=== PATIENT | female | born 1940 | race Caucasian/White ===

== ENCOUNTER 2018-02-18 03:24 | Emergency (ER) | payer MEDICARE, BC ==
--- NOTE | 2018-02-18 05:59 | ER Document Report ---
ED General - General Chief Complaint: Back Pain Stated Complaint: BACK PAIN Time Seen by Provider: 02/18/18 05:57 Mode of Arrival: Ambulatory Information source: Patient Notes: 78-year-old female patient who presents with left-sided back pain. Patient reports that the pain radiates from her midline to her left scapula. Patient reports that she had the same exact pain 2 years ago at which point she was diagnosed with either a musculoskeletal strain or an early shingles. Patient reports that she never developed shingles in that her musculoskeletal strain resolved within a few days. Patient denies any significant past medical history. On my examination patient is completely pain-free, patient has been waiting several hours and patient reports that she was able to do some stretches while waiting and that the pain is completely gone. Patient denies any other symptoms. TRAVEL OUTSIDE OF THE [place] IN LAST 30 DAYS: No - Related Data Allergies/Adverse Reactions: No Known Allergies Allergy (Verified 06/01/14 23:18) Past Medical History - General Information source: Patient - Social History Smoking Status: Never Smoker Chew tobacco use (# tins/day): No Frequency of alcohol use: None Drug Abuse: None Family History: Reviewed & Not Pertinent Patient has suicidal ideation: No Patient has homicidal ideation: No - Past Medical History Cardiac Medical History: Reports: Hx Atrial Fibrillation, Hx Hypercholesterolemia Renal/ Medical History: Denies: Hx Peritoneal Dialysis Past Surgical History: Reports: Hx Section, Hx Cholecystectomy, Hx Open Heart Surgery - Mitral valvuloplasty and (Porcine) Aortic valve replacement February 2014 - Immunizations Hx Diphtheria, Pertussis, Tetanus Vaccination: Yes Review of Systems - Review of Systems Constitutional: No symptoms reported EENT: No symptoms reported Cardiovascular: No symptoms reported Respiratory: No symptoms reported Gastrointestinal: No symptoms reported Genitourinary: No symptoms reported Female Genitourinary: No symptoms reported Musculoskeletal: See HPI Skin: No symptoms reported Hematologic/Lymphatic: No symptoms reported Neurological/Psychological: No symptoms reported Physical Exam - Vital signs Vitals: Temp Pulse Resp BP Pulse Ox 97.6 F 79 20 190/87 H 100 02/18/18 03:38 02/18/18 03:38 02/18/18 03:38 02/18/18 03:38 02/18/18 03:38 - Notes Notes: PHYSICAL EXAMINATION: GENERAL: Well-appearing, well-nourished and in no acute distress. HEAD: Atraumatic, normocephalic. EYES: Pupils equal round and reactive to light, extraocular movements intact, conjunctiva are normal. ENT: Nares patent, oropharynx clear without exudates. Moist mucous membranes. NECK: Normal range of motion, supple without lymphadenopathy LUNGS: Breath sounds clear to auscultation bilaterally and equal. No wheezes rales or rhonchi. HEART: Regular rate and rhythm without murmurs ABDOMEN: Soft, nontender, nondistended abdomen. No guarding, no rebound. No masses appreciated. Female : deferred Musculoskeletal: Normal range of motion, no pitting or edema. No cyanosis. NEUROLOGICAL: Cranial nerves grossly intact. Normal speech, normal gait. Normal sensory, motor exams PSYCH: Normal mood, normal affect. SKIN: Warm, Dry, normal turgor, no rashes or lesions noted. Course - Re-evaluation Re-evalutation: 78-year-old well appearing patient presents with complaint of back pain which has now resolved. Patient states that she had the exact same back pain 2 years ago at which point she was diagnosed with a musculoskeletal strain. Patient reports that she has been doing a lot of lifting and yard work lately. Patient' s physical exam is completely benign. Patient is requesting to leave without any workup. Patient reports that she already has an appointment scheduled with her provider for later today at [facility]. Patient declines the need for any medications to be administered in the emergency room. Patient will be discharged home with plans to follow-up with primary care later today if her pain returns. Patient specifically denies any chest pain, shortness of breath, nausea, vomiting or fever. Patient's vital signs were stable at time of arrival to emergency department. - Vital Signs Vital signs: Temp Pulse Resp BP Pulse Ox 97.6 F 79 20 190/87 H 100 02/18/18 03:38 02/18/18 03:38 02/18/18 03:38 02/18/18 03:38 02/18/18 03:38 Discharge - Discharge Clinical Impression: Musculoskeletal strain Back pain Qualifiers: Back pain location: thoracic back pain Chronicity: unspecified Back pain laterality: unspecified Qualified Code(s): M54.6 - Pain in thoracic spine Condition: Stable Disposition: HOME, SELF-CARE Additional Instructions: Muscle Strain You have strained a muscle -- torn the fibers within the muscle. This often occurs with strenuous exertion, or during an injury that suddenly stretches the muscle. The seriousness of a strain varies. Some strains heal within days, others cause problems for months. X-rays cannot show a muscle strain. X-rays are taken only if symptoms suggest that a fracture could be present. The usual treatment of a muscle strain is rest and ice packs. Sometimes, a sling, splint, or crutches may be necessary to rest the muscle. The muscle can be used again once pain subsides. Severe strains require a special exercise and stretching program to prevent permanent stiffness and disability. Your doctor will advise you if this will be necessary. Call the doctor immediately if pain or swelling becomes severe, or if numbness or discoloration develop. You came in today with a complaint of back pain. He stated to me that the back pain was resolved upon my assessment. This is likely caused by a musculoskeletal strain, the same thing you said you had 2 years ago as you said the pain was exactly the same as then. You have declined any need for prescriptions. Please follow-up with your primary care doctor in the next 3-5 days or return to the emergency department sooner if your pain worsens. Referrals: [facility] [Provider Group] - Follow up as needed
[2018-02-18 06:07] VITALS: BP 168/82
[2018-02-18 06:13] LABS: APPEARANCE,URINE CLEAR; BILIRUBIN,URINE NEGATIVE (NEGATIVE); COLOR,URINE STRAW; GLUCOSE, URINE NEGATIVE (NEGATIVE); KETONES,URINE NEGATIVE (NEGATIVE); LEUKOCYTE ESTERASE,URINE NEGATIVE (NEGATIVE); NITRITE,URINE NEGATIVE (NEGATIVE); PROTEIN,URINE NEGATIVE (NEGATIVE); URINE SPECIFIC GRAVITY 1.011; UROBILINOGEN,URINE NEGATIVE mg/dL (<2.0)
== END 2018-02-18 06:05 | disposition home or self-care (01) ==
LOC: ER 03:24
DX: T14.8XXA Other injury of unspecified body region, initial encounter (principal); X58.XXXA Exposure to other specified factors, initial encounter; M54.6 Pain in thoracic spine
CPT/HCPCS: 81001; 99283

== ENCOUNTER 2018-02-27 16:37 | Emergency (ER) | payer MEDICARE, BC ==
[2018-02-27] MEDS ORDERED: LIDOCAINE 5% (700 MG) TRANSDERMAL ADH..PATCH TP ONE (17:33)
[2018-02-27] MEDS ORDERED: DEXAMETHASONE SOD PHOS INJ 10 MG/1 ML VIAL IM ONE (17:33)
[2018-02-27] MEDS ORDERED: KETOROLAC TROMETHAMINE INJ/PF 30 MG/1 ML SDV IM ONE (17:33)
[2018-02-27] MEDS ORDERED: HYDROCODONE/ACETAMINOPHEN 5-325 MG (6 TAB/ER DISP) PO PRN (17:33)
--- NOTE | 2018-02-27 17:42 | ER Document Report ---
ED Neck/Back Problem - General Chief Complaint: Back Pain Stated Complaint: BACK PAIN Time Seen by Provider: 02/27/18 17:21 Mode of Arrival: Ambulatory Information source: Patient Notes: 78-year-old female presented to ED for complaint of left upper back pain that she has had about a year ago and then a week ago but then started again severely today. She states he went to her primary care doctor who told her she needed to stop lifting pushing and pulling. She states how she did with sweep today but she swept her to a whole garage when the pain started. She states she just needs something to make this pain stop so she can go home and see her primary care doctor. TRAVEL OUTSIDE OF THE [place] IN LAST 30 DAYS: No - HPI Onset: This afternoon Where: Home, Outdoors Onset: Chronic - New episode this afternoon Timing: Still present Quality of pain: Burning, Sharp Severity: Moderate Pain Level: 4 Context: Other - Been out the garage Recent injury: No Associated symptoms: Upper back pain - Left upper back Exacerbated by: Movement of trunk Relieved by: Nothing Similar symptoms previously: Yes Recently seen / treated by doctor: Yes - Related Data Allergies/Adverse Reactions: No Known Allergies Allergy (Verified 06/01/14 23:18) Past Medical History - General Information source: Patient - Social History Smoking Status: Never Smoker Cigarette use (# per day): No Chew tobacco use (# tins/day): No Smoking Education Provided: No Frequency of alcohol use: None Drug Abuse: None Family History: Reviewed & Not Pertinent Patient has suicidal ideation: No Patient has homicidal ideation: No - Past Medical History Cardiac Medical History: Reports: Hx Atrial Fibrillation, Hx Hypercholesterolemia Pulmonary Medical History: Reports: None EENT Medical History: Reports: None Neurological Medical History: Reports: None Endocrine Medical History: Reports: None Renal/ Medical History: Reports: None Malignancy Medical History: Reports: None GI Medical History: Reports: None Musculoskeltal Medical History: Reports Hx Musculoskeletal Deformity, Reports Hx Musculoskeletal Trauma Skin Medical History: Reports None Psychiatric Medical History: Reports: None Traumatic Medical History: Reports: None Infectious Medical History: Reports: None Past Surgical History: Reports: Hx Section, Hx Cholecystectomy, Hx Open Heart Surgery - Mitral valvuloplasty and (Porcine) Aortic valve replacement February 2014 - Immunizations Hx Diphtheria, Pertussis, Tetanus Vaccination: Yes Review of Systems - Review of Systems Musculoskeletal: Back pain - Left upper back muscle pain, Muscle pain, Muscle stiffness Physical Exam - Vital signs Vitals: Temp Pulse Resp BP Pulse Ox 98.2 F 82 24 H 187/80 H 98 02/27/18 16:43 02/27/18 16:43 02/27/18 16:43 02/27/18 16:43 02/27/18 16:43 - Respiratory Respiratory status: No respiratory distress Chest status: Nontender Breath sounds: Normal Chest palpation: Normal - Back Back: Normal, Tender - Left upper back. No: Vertebra tenderness Course - Re-evaluation Re-evalutation: 02/27/18 21:46 Patient was treated with Toradol Decadron Lidoderm patch and a [place] dispense pack. Patient had driven herself to the hospital. She was instructed to not sweep not left and not do any strenuous work until this injury resolved itself. Patient is going to follow-up with her primary doctor tomorrow. Patient was given precautions for her narcotic medications. Patient verbalized understanding. After performing a Medical Screening Examination, I estimate there is LOW risk for EXPANDING OR RUPTURED ABDOMINAL AORTIC ANEURYSM, CAUDA EQUINA SYNDROME, EPIDURAL MASS LESION, or HERNIATED DISK CAUSING SEVERE SPINAL STENOSIS, thus I consider the discharge disposition reasonable. I have reevaluated this patient multiple times and no significant life threatening changes are noted. The patient and I have discussed the diagnosis and risks, and we agree with discharging home and close follow-up. We also discussed returning to the Emergency Department immediately if new or worsening symptoms occur with the understanding that symptoms and presentations can change. We have discussed the symptoms which are most concerning (e.g., saddle anesthesia, urinary or bowel incontinence or retention, changing or worsening pain) that necessitate immediate return. - Vital Signs Vital signs: Temp Pulse Resp BP Pulse Ox 98.5 F 67 14 174/83 H 99 02/27/18 18:31 02/27/18 18:31 02/27/18 18:31 02/27/18 18:31 02/27/18 18:31 Discharge - Discharge Clinical Impression: Upper back pain on left side Condition: Stable Disposition: HOME, SELF-CARE Additional Instructions: You were seen today for left upper back pain. MUSCLE STRAIN: You have strained a muscle -- torn the fibers within the muscle. This often occurs with strenuous exertion, or during an injury that suddenly stretches the muscle. The seriousness of a strain varies. Some strains heal within days, others cause problems for months. X-rays cannot show a muscle strain. X-rays are taken only if symptoms suggest that a fracture could be present. The usual treatment of a muscle strain is rest and ice packs. Sometimes, a sling, splint, or crutches may be necessary to rest the muscle. The muscle can be used again once pain subsides. Severe strains require a special exercise and stretching program to prevent permanent stiffness and disability. Your doctor will advise you if this will be necessary. Call the doctor immediately if pain or swelling becomes severe, or if numbness or discoloration develop. ICE PACKS: Apply ice packs frequently against the painful area. Many different schedules are recommended, such as "20 minutes on, 20 minutes off" or "one hour ice, two hours rest." If you need to work, you may need to go longer between ice treatments. You should plan to have the area ice packed AT LEAST one fourth of the time. The ice should be applied over the wrap, tape, or splint, or over a layer of cloth -- not directly against the skin. Some ice bags have a built-in cloth and can be put directly on the skin. WARM PACKS: After approximately two days, apply gentle heat (such as a heating pad or hot water bottle) for about 20 to 30 minutes about every two hours -- at least four times daily. Warmth and elevation will help you make a more rapid recovery , and will ease the pain considerably. Do not use HOT heat, and never apply heat for longer than 30 minutes. The continuous heat can invisibly damage skin and muscles -- even when no burn is seen on the surface. Damaged muscles can make you MORE sore. ORAL NARCOTIC MEDICATION: You have been given a prescription for pain control. This medication is a narcotic. It's best taken with food, as nausea can result if taken on an empty stomach. Don't operate machinery or drive within six hours of taking this medication. Do not combine this medicine with alcohol, or with any medication which can cause sedation (such as cold tablets or sleeping pills) unless you get permission from the physician. Narcotics tend to cause constipation. If possible, drink plenty of fluids and eat a diet high in fiber and fruits. STEROID MEDICATION: You have been given a medicine of the cortisone/steroid class. This medication is used to control inflammation or allergy. It is usually only given for a short period of time, until the acute process subsides. There are usually no side effects from short-term use of cortisone-like medications. Some persons feel an increased sense of well-being and are not sleepy at bedtime. Long-term use of cortisone medications is best avoided, unless required for a severe condition. If your condition does not remit, or relapses after the course of corticosteroid medication, you should consult your physician. Toradol Injection You have been given an injection of ketorolac tromethamine (Toradol). This is an excellent, safe drug for pain control. It also has potent antiinflammatory action. You should have significant pain relief within about one hour. Toradol is not addicting and is non-sedating. It does not interfere with driving or work. Call or return if you develop itching, hives, shortness of breath, or rash. You also given a Lidoderm patch that was applied to the area that you were hurting. This is lidocaine. This patch needs to be removed in 12 hours. You can use Aspercreme 12 hours after this patches removed and use according to the package instructions. FOLLOW-UP CARE: If you have been referred to a physician for follow-up care, call the physician s office for an appointment as you were instructed or within the next two days. If you experience worsening or a significant change in your symptoms, notify the physician immediately or return to the Emergency Department at any time for re-evaluation. Please call your primary doctor first thing in the morning and schedule a follow -up appointment. Please note lifting no pushing no pulling and no sweeping until you follow-up with your primary doctor. Forms: Elevated Blood Pressure Referrals: JAMES DORSEY MD [Primary Care Provider] - Follow up as needed
[2018-02-27 18:32] VITALS: BP 174/83
== END 2018-02-27 18:31 | disposition home or self-care (01) ==
LOC: ER 16:37
DX: M54.89 Other dorsalgia (principal)
CPT/HCPCS: 99283; 96372; J1885; J1100; A9270

== ENCOUNTER 2019-08-19 17:54 | Emergency (ER) | payer MEDICARE, BC ==
[2019-08-19] MEDS ORDERED: HYDROCODONE/ACETAMINOPHEN 5-325 MG TABLET PO ONE (18:33)
[2019-08-19] MEDS ORDERED: ONDANSETRON 4 MG TAB.RAPDIS PO ONE (18:33)
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
[2019-08-19 22:24] VITALS: BP 127/61
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
== END 2019-08-19 23:01 | disposition home or self-care (01) ==
LOC: ER 17:54
DX: S80.11XA Contusion of right lower leg, initial encounter (principal); S80.211A Abrasion, right knee, initial encounter; M79.89 Other specified soft tissue disorders; V09.09XA Pedestrian injured in nontraffic accident involving other motor vehicles, initial encounter
CPT/HCPCS: 99283; 73564; A9270 ×2; S0119

== ENCOUNTER 2019-10-25 07:22 | Inpatient (IN) | payer MEDICARE, BC ==
--- NOTE | 2019-10-25 08:40 | ER Document Report ---
ED Neuro Symptoms/Deficit - General Chief Complaint: Numbness Stated Complaint: NUMBNESS Time Seen by Provider: 10/25/19 08:08 Information source: Patient, Relative Notes: Patient states that she has a history of Joey Orantes 30 years ago and has since had recurrent neurologic symptoms since that initial episode. 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 Patient states that she has had some tingling in the feet that started 6 days ago. Patient did see her neurologist 3 days ago and she was supposed to have home infusions of IgG started. Patient states that she feels as though her symptoms are starting to worsen and she has not yet started her infusions. Patient states that when she saw her neurologist she did have some paresthesia extending to the calfs of her legs. Patient states that her feet are numb and this is caused her to have some falls at home. Patient denies any injury from these falls. Patient states that she has been crawling at home to prevent any falls. Family member state that she is able to ambulate with assistance without falling. Patient complains of some paresthesia to the fingertips. TRAVEL OUTSIDE OF THE [place] IN LAST 30 DAYS: No - HPI Patient complains to provider of: Difficulty walking, Paresthesia Onset: Other - 5 days Symptoms are: Worse/persistent Duration: Continues in ED Quality of pain: Achy Pain Level: 1 Context: Falling Was STROKE ALERT Called: No Baseline Cognitive: Alert, oriented X 3 Character of altered mental status: No: Seizure activity Altered sensation: LUE, LLE, RUE, RLE Decreased ability to stand/walk: Off balance Vision problem/glaucoma: No Associated symptoms: Back pain. denies: Chills, Falling injury, Fever, Headache, Nausea, Short of breath Similar symptoms previously: Yes Recently seen / treated by doctor: Yes - Related Data Allergies/Adverse Reactions: No Known Allergies Allergy (Verified 08/19/19 18:33) Past Medical History - General Information source: Patient, Relative - Social History Smoking Status: Never Smoker Frequency of alcohol use: None Drug Abuse: None Lives with: Family Family History: Reviewed & Not Pertinent Patient has suicidal ideation: No Patient has homicidal ideation: No - Medical History Medical History: Other - Gumelissa Orantes 30 years ago, CIDP - Past Medical History Cardiac Medical History: Reports: Hx Hypercholesterolemia Endocrine Medical History: Reports: Hx Diabetes Mellitus Type 2 Renal/ Medical History: Denies: Hx Peritoneal Dialysis Musculoskeletal Medical History: Reports Hx Musculoskeletal Deformity, Reports Hx Musculoskeletal Trauma Past Surgical History: Reports: Hx Section, Hx Cholecystectomy, Hx Open Heart Surgery - Mitral valvuloplasty and (Porcine) Aortic valve replacement February 2014 - Immunizations Hx Diphtheria, Pertussis, Tetanus Vaccination: Yes Review of Systems - Review of Systems Constitutional: No symptoms reported. denies: Chills, Fever EENT: No symptoms reported Cardiovascular: No symptoms reported. denies: Chest pain Respiratory: No symptoms reported Gastrointestinal: No symptoms reported. denies: Nausea, Vomiting Genitourinary: No symptoms reported Female Genitourinary: No symptoms reported Musculoskeletal: Back pain Skin: No symptoms reported. denies: Rash Hematologic/Lymphatic: No symptoms reported Neurological/Psychological: Sensory change, Gait changes - Frequent falls due to altered sensation to feet per patient. denies: Lost consciousness, Headaches Physical Exam - Vital signs Vitals: Temp Pulse Resp BP Pulse Ox 97.6 F 111 H 16 167/92 H 96 10/25/19 07:40 10/25/19 07:40 10/25/19 07:40 10/25/19 07:40 10/25/19 07:40 - General General appearance: Appears well, Alert, Anxious In distress: None - HEENT Head: Normocephalic, Atraumatic Eyes: Normal Conjunctiva: Normal Extraocular movements intact: Yes Eyelashes: Normal Pupils: PERRL Ears: Normal External canal: Normal Nasal: Normal Mouth/Lips: Normal Mucous membranes: Normal Neck: Normal, Supple, Other - No cervical midline tenderness step-off or deformity. No: Lymphadenopathy - Respiratory Respiratory status: No respiratory distress Chest status: Nontender Breath sounds: Normal. No: Rhonchi Chest palpation: Normal - Cardiovascular Rhythm: Tachycardia Heart sounds: S1 appreciated, S2 appreciated Murmur: Yes Pulses: Normal: Radial, Dorsalis pedis - Abdominal Inspection: Normal Distension: No distension Bowel sounds: Normal Tenderness: Nontender - Back Back: Tender - Upper thoracic paraspinal tenderness, no midline tenderness step- off or deformity, no ecchymosis or abrasions - Extremities General upper extremity: Normal inspection, Normal ROM General lower extremity: Normal inspection, Normal ROM - Neurological Neuro grossly intact: Yes [place] Coma Scale Eye Opening: Spontaneous Bernabe Coma Scale Verbal: Oriented Bernabe Coma Scale Motor: Obeys Commands [place] Coma Scale Total: 15 Speech: Normal Cranial nerves: No: Facial palsy Motor strength normal: LUE, RUE, LLE, RLE Additional motor exam normals: Equal car rider Sensory: Altered light touch - To bilateral lower extremities mid calf distally, to fingers of bilateral hands - Psychological Associated symptoms: Anxious - Skin Skin Temperature: Warm Skin Moisture: Dry Skin Color: Normal Course - Re-evaluation Re-evalutation: 10/25/19 08:[address] Shepard regarding patient presentation and management. Agrees with plan for consultation with patient's neurologist to guide the diagnostic evaluation. 10/25/19 08:38 Consulted with patient's neurologist Dr. Bro regarding patient presentation, recommends admission and administration of IVIG for at least 3 days to treat a CIDP flare. Also recommends CT scan imaging of the head and neck given patient's history of falls. Suspect that patient's falls are likely due to balance issues brought on by her CIDP. Dr Bro states that patient has had similar flareups in the past that responded well to IV infusions of IgG. 10/25/19 10:[address] Saavedra regarding patient presentation and need for admission for infusion of IgG, Dr. Saavedra does agree to come and evaluate patient. - Vital Signs Vital signs: Temp Pulse Resp BP Pulse Ox 98.0 F 92 18 165/83 H 100 10/25/19 16:05 10/25/19 16:17 10/25/19 16:05 10/25/19 16:05 10/25/19 16:05 - Laboratory Result Diagrams: 10/25/19 08:33 10/25/19 08:33 Laboratory results interpreted by me: 10/25/19 10/25/19 08:33 08:33 WBC 13.0 H Absolute Neuts (auto) 9.5 H Glucose 170 H Labs- Entire Visit 10/25/19 10/25/19 10/25/19 08:33 08:33 10:38 WBC 13.0 H RBC 4.73 Hgb 14.9 Hct 43.4 MCV 92 MCH 31.4 MCHC 34.3 RDW 12.9 Plt Count 326 Lymph % (Auto) 19.2 Cook % (Auto) 7.0 Eos % (Auto) 0.3 Baso % (Auto) 0.3 Absolute Neuts (auto) 9.5 H Absolute Lymphs (auto) 2.5 Absolute Monos (auto) 0.9 Absolute Eos (auto) 0.0 Absolute Basos (auto) 0.0 Seg Neutrophils % 73.2 Sodium 138.1 Potassium 4.2 Chloride 100 Carbon Dioxide 29 Anion Gap 9 BUN 18 Creatinine 0.89 Est GFR ( Amer) > 60 Est GFR (MDRD) Non-Af > 60 Glucose 170 H Calcium 10.0 Total Bilirubin 0.8 Direct Bilirubin 0.0 Neonat Total Bilirubin Not Reportable Neonat Direct Bilirubin Not Reportable Neonat Indirect Bili Not Reportable AST 36 ALT 25 Alkaline Phosphatase 98 Total Protein 7.5 Albumin 4.6 Urine Color YELLOW Urine Appearance CLEAR Urine pH 7.0 Ur Specific [place] 1.009 Urine Protein NEGATIVE Urine Glucose (UA) NEGATIVE Urine Ketones NEGATIVE Urine Blood NEGATIVE Urine Nitrite NEGATIVE Urine Bilirubin NEGATIVE Urine Urobilinogen NEGATIVE Ur Leukocyte Esterase NEGATIVE Urine WBC (Auto) 2 Urine RBC (Auto) 1 U Hyaline Cast (Auto) 4 Urine Bacteria (Auto) TRACE Squamous Epi Cells Auto 1 Urine Mucus (Auto) OCC Urine Ascorbic Acid NEGATIVE - Diagnostic Test Radiology reviewed: Reports reviewed Discharge - Discharge Clinical Impression: Paresthesia, CIDP (chronic inflammatory demyelinating polyneuropathy) Condition: Stable Disposition: ADMITTED INPATIENT Admitting Provider: Keri (Hospitalist) Unit Admitted: [facility]
[2019-10-25] MEDS ORDERED: NORMAL SALINE 1000 ML 1,000 ML IV ONE (08:50)
[2019-10-25 08:52] LABS: ABSOLUTE LYMPHOCYTES (AUTO) 2.5 10^3/uL (0.5-4.7); ABSOLUTE MONOCYTES (AUTO) 0.9 10^3/uL (0.1-1.4); ABSOLUTE NEUT (AUTO) 9.5 10^3/uL (1.7-8.2); BASOPHILS % (AUTO) 0.3 % (0-2); EOSINOPHILS % (AUTO) 0.3 % (0-6); HEMATOCRIT 43.4 % (36.0-47.0); HEMOGLOBIN 14.9 g/dL (12.0-15.5); LYMPHOCYTES % (AUTO) 19.2 % (13-45); MEAN CORPUSCULAR HEMOGLOBIN 31.4 pg (27.0-33.4); MEAN CORPUSCULAR HGB CONC 34.3 g/dL (32.0-36.0); MEAN CORPUSCULAR VOLUME 92 fl (80-97); PLATELET COUNT 326 10^3/uL (150-450); RED BLOOD COUNT 4.73 10^6/uL (3.72-5.28); RED CELL DISTRIBUTION WIDTH 12.9 % (11.5-14.0); SEGMENTED NEUTROPHILS % (AUTO) 73.2 % (42-78); TOTAL CELLS COUNTED % (AUTO) 100 %
--- NOTE | 2019-10-25 09:10 | EKG REPORT ---
SEVERITY:- ABNORMAL ECG - SINUS TACHYCARDIA LEFT ANTERIOR FASCICULAR BLOCK PROBABLE LVH WITH SECONDARY REPOL ABNRM : Confirmed by: Terri Stroud 25-Oct-2019 09:09:18
[2019-10-25 09:20] LABS: ALBUMIN 4.6 g/dL (3.5-5.0); ALKALINE PHOSPHATASE 98 U/L (38-126); ANION GAP 9 (5-19); ASPARTATE AMINO TRANSFERASE 36 U/L (14-36); BILIRUBIN,TOTAL 0.8 mg/dL (0.2-1.3); BLOOD UREA NITROGEN 18 mg/dL (7-20); CARBON DIOXIDE 29 mmol/L (22-30); CHLORIDE 100 mmol/L (98-107); GLUCOSE 170 mg/dL (75-110); POTASSIUM 4.2 mmol/L (3.6-5.0); TOTAL PROTEIN 7.5 g/dL (6.3-8.2)
--- NOTE | 2019-10-25 09:32 | RADIOLOGY REPORT (SQ) ---
EXAM DESCRIPTION: CT HEAD WITHOUT COMPLETED DATE/TIME: 10/25/2019 9:10 am REASON FOR STUDY: freq fall COMPARISON: None. TECHNIQUE: Axial images acquired through the brain without intravenous contrast. Images reviewed wi th bone, brain and subdural windows. Additional sagittal and coronal reconstructions were generated. Images stored on PACS. All CT scanners at this facility use dose modulation, iterative reconstruction, and/or weight based d osing when appropriate to reduce radiation dose to as low as reasonably achievable (ALARA). [facility]: Dose Right [facility]: CareDose [facility]: Dose Right [facility]: Teradose 4D [facility]: [place] RADIATION DOSE: CT Rad equipment meets quality standard of care and radiation dose reduction techniq ues were employed. CTDIvol: 53.2 mGy. DLP: 991 mGy-cm.mGy. LIMITATIONS: None. FINDINGS: VENTRICLES: Prominent. CEREBRUM: No masses. No hemorrhage. No midline shift. Areas of low density in the white matter mos t likely due to chronic micro-vascular ischemic change. No evidence for acute infarction. CEREBELLUM: No masses. No hemorrhage. No alteration of density. No evidence for acute infarction. EXTRAAXIAL SPACES: Age-related involutional change. No fluid collections. No masses. ORBITS AND GLOBE: No intra- or extraconal masses. Normal contour of globe without masses. CALVARIUM: No fracture. PARANASAL SINUSES: No fluid or mucosal thickening. SOFT TISSUES: No mass or hematoma. OTHER: No other significant finding. IMPRESSION: CHRONIC CHANGES OF ATROPHY AND MICROVASCULAR ISCHEMIA. NO ACUTE PROCESS. EVIDENCE OF ACUTE STROKE: NO. TECHNICAL DOCUMENTATION: JOB ID: [id number] Quality ID # [id number]: Final reports with documentation of one or more dose reduction techniques (e.g., Au tomated exposure control, adjustment of the mA and/or kV according to patient size, use of iterative reconstruction technique) 2010 [employer]- All Rights Reserved Reading location - IP/workstation name: [email or web address]
--- NOTE | 2019-10-25 09:36 | RADIOLOGY REPORT (SQ) ---
EXAM DESCRIPTION: CT CERVICAL SPINE WITHOUT COMPLETED DATE/TIME: 10/25/2019 9:10 am REASON FOR STUDY: falls COMPARISON: None. TECHNIQUE: Axial images acquired through the cervical spine without intravenous contrast. Images re viewed with lung, soft tissue and bone windows. Reconstructed coronal and sagittal MPR images review ed. Images stored on PACS. All CT scanners at this facility use dose modulation, iterative reconstruction, and/or weight based d osing when appropriate to reduce radiation dose to as low as reasonably achievable (ALARA). [facility]: Dose Right [facility]: CareDose [facility]: Dose Right [facility]: Teradose 4D [facility]: [employer] RADIATION DOSE: CT Rad equipment meets quality standard of care and radiation dose reduction techniq ues were employed. CTDIvol: 19.4 mGy. DLP: 340 mGy-cm. mGy. LIMITATIONS: None. FINDINGS: ALIGNMENT: Anatomic. MINERALIZATION: Normal. VERTEBRAL BODIES: No fractures or dislocation. DISCS: Multilevel disc space narrowing with osteophytes. FACETS, LATERAL MASSES, POSTERIOR ELEMENTS: Facet arthropathy. No fractures. No dislocation. No ac [place] findings. HARDWARE: None in the spine. VISUALIZED RIBS: No fractures. LUNG APICES AND SOFT TISSUES: No significant or acute findings. OTHER: No other significant finding. IMPRESSION: CHRONIC DEGENERATIVE CHANGES. NO ACUTE FINDINGS. TECHNICAL DOCUMENTATION: JOB ID: [id number] Quality ID # [id number]: Final reports with documentation of one or more dose reduction techniques (e.g., Au tomated exposure control, adjustment of the mA and/or kV according to patient size, use of iterative reconstruction technique) 2010 [employer]- All Rights Reserved Reading location - IP/workstation name: [email or web address]
--- NOTE | 2019-10-25 09:36 | RADIOLOGY REPORT (SQ) ---
EXAM DESCRIPTION: CHEST 2 VIEWS COMPLETED DATE/TIME: 10/25/2019 9:21 am REASON FOR STUDY: fall, upper back pain COMPARISON: 12/26/2014 EXAM PARAMETERS: NUMBER OF VIEWS: two views TECHNIQUE: Digital Frontal and Lateral radiographic views of the chest acquired. RADIATION DOSE: NA LIMITATIONS: none FINDINGS: LUNGS AND PLEURA: No opacities, masses or pneumothorax. No pleural effusion. MEDIASTINUM AND HILAR STRUCTURES: No masses or contour abnormalities. HEART AND VASCULAR STRUCTURES: Heart normal size. No evidence for failure. BONES: No acute findings. HARDWARE: CABG. Prosthetic heart valve. OTHER: No other significant finding. IMPRESSION: NO ACUTE RADIOGRAPHIC FINDING IN THE CHEST. TECHNICAL DOCUMENTATION: JOB ID: [id number] 2010 [employer]- All Rights Reserved Reading location - IP/workstation name: [email or web address]
[2019-10-25 10:48] LABS: APPEARANCE,URINE CLEAR; BILIRUBIN,URINE NEGATIVE (NEGATIVE); COLOR,URINE YELLOW; GLUCOSE, URINE NEGATIVE (NEGATIVE); KETONES,URINE NEGATIVE (NEGATIVE); LEUKOCYTE ESTERASE,URINE NEGATIVE (NEGATIVE); NITRITE,URINE NEGATIVE (NEGATIVE); PROTEIN,URINE NEGATIVE (NEGATIVE); URINE SPECIFIC GRAVITY 1.009; UROBILINOGEN,URINE NEGATIVE mg/dL (<2.0)
[2019-10-25] MEDS ORDERED: EPINEPHRINE INJ 1 MG/10 ML DISP.SYRIN IV PRN (10:55)
[2019-10-25] MEDS ORDERED: IMMUNE GLOB,GAM CAPRYLATE(IGG) 20 GM/200 ML SDV IV SCH (11:00)
[2019-10-25] MEDS ORDERED: [UNRECOGNIZED DRUG - OTHER] IV SCH ×4 (12:00)
[2019-10-25] MEDS ORDERED: IMMUNE GLOB GAM CAPRYLATE IV SCH ×4 (12:00)
[2019-10-25] MEDS ORDERED: IMMUNE GLOB,GAM CAPRYLATE(IGG) 40 GM, IMMUNE GLOB,GAM CAPRYLATE(IGG) 10 GM in CONTAINER... IV SCH (12:00)
[2019-10-25] MEDS: HEPARIN SOD (PORCINE) 5,000 UNIT/ML 1 ML VIAL SUBCUT SCH ×2 (14:39→22:00)
--- NOTE | 2019-10-25 16:52 | PDOC H&P ---
History of Present Illness Admission Date/PCP: 10/25/19 11:46 History of Present Illness: ANDREW HUIZAR is a 79 year old female with a history of chronic inflammatory demyelinating polyneuropathy who has had periodic IVIG infusions over time. She began to have recurrence of symptoms that manifested as pain in her feet and her fingers a few days ago. Her neurologist in [place] was attempting to arrange for her to get IVIG at home, but she had progression of her symptoms primarily with numbness and pain in the lower extremities and now she has symptoms up to her knees bilaterally. Her neurologist has recommended that she be admitted for 3 days of IVIG. She is not having any trouble breathing. Past Medical History Cardiac Medical History: Reports: Atrial Fibrillation, Hyperlipidema Past Surgical History Past Surgical History: Reports: Section, Cholecystectomy Social History Smoking Status: Never Smoker Family History Family History: Reviewed & Not Pertinent Parental Family History Reviewed: Yes Children Family History Reviewed: Yes Sibling(s) Family History Reviewed.: Yes Medication/Allergy Home Medications: Atorvastatin Calcium [Lipitor 40 mg Tablet] 40 mg PO QHS 10/25/19 Glipizide [Glipizide Xl] 5 mg PO QAM 10/25/19 Metformin HCl [Metformin HCl ER] 500 mg PO DAILY 10/25/19 Allergies/Adverse Reactions: No Known Allergies Allergy (Verified 08/19/19 18:33) Review of Systems All systems: reviewed and no additional remarkable complaints except as stated - All systems were reviewed and were negative except as noted in the HPI Physical Exam Vital Signs: Temp Pulse Resp BP Pulse Ox 98.0 F 92 18 165/83 H 100 10/25/19 16:05 10/25/19 16:17 10/25/19 16:05 10/25/19 16:05 10/25/19 16:05 Intake & Output 10/24/19 10/25/19 10/26/19 06:59 06:59 06:59 Intake Total 1000 Balance 1000 Weight 79.8 kg General appearance: PRESENT: no acute distress, cooperative, disheveled Head exam: PRESENT: atraumatic, normocephalic Eye exam: PRESENT: EOMI, PERRLA. ABSENT: conjunctival injection, nystagmus, scleral icterus Ear exam: PRESENT: normal external ear exam Mouth exam: PRESENT: moist, neck supple Teeth exam: PRESENT: poor dentation Throat exam: ABSENT: post pharyngeal erythema Neck exam: PRESENT: full ROM. ABSENT: carotid bruit, JVD, lymphadenopathy, meningismus, tenderness, thyromegaly Respiratory exam: PRESENT: clear to auscultation karlos, symmetrical, unlabored. ABSENT: accessory muscle use, chest wall tenderness, crackles, prolonged expiratory phas, retraction, rhonchi, tachypnea, wheezes Cardiovascular exam: PRESENT: RRR, +S1, +S2 Pulses: PRESENT: normal carotid pulses Vascular exam: PRESENT: normal capillary refill GI/Abdominal exam: PRESENT: normal bowel sounds, soft. ABSENT: distended, guarding, rebound, tenderness Extremities exam: ABSENT: clubbing, pedal edema Musculoskeletal exam: PRESENT: normal inspection. ABSENT: deformity Neurological exam: PRESENT: alert, awake, oriented to person, oriented to place, oriented to time, oriented to situation, CN II-XII grossly intact, motor sensory deficit - Numbness in the lower extremities distal to the knees bilaterally, numbness in the fingertips bilaterally Psychiatric exam: PRESENT: appropriate affect, normal mood Skin exam: PRESENT: dry, warm Results Laboratory Results: 10/25/19 08:33 10/25/19 08:33 10/25/19 10/25/19 10/25/19 08:33 08:33 10:38 WBC 13.0 H RBC 4.73 Hgb 14.9 Hct 43.4 MCV 92 MCH 31.4 MCHC 34.3 RDW 12.9 Plt Count 326 Seg Neutrophils % 73.2 Sodium 138.1 Potassium 4.2 Chloride 100 Carbon Dioxide 29 Anion Gap 9 BUN 18 Creatinine 0.89 Est GFR ( Amer) > 60 Glucose 170 H Calcium 10.0 Total Bilirubin 0.8 AST 36 Alkaline Phosphatase 98 Total Protein 7.5 Albumin 4.6 Urine Color YELLOW Urine Appearance CLEAR Urine pH 7.0 Ur Specific [place] 1.009 Urine Protein NEGATIVE Urine Glucose (UA) NEGATIVE Urine Ketones NEGATIVE Urine Blood NEGATIVE Urine Nitrite NEGATIVE Ur Leukocyte Esterase NEGATIVE Urine WBC (Auto) 2 Urine RBC (Auto) 1 Impressions: Cervical Spine CT 10/25/19 08:34 IMPRESSION: CHRONIC DEGENERATIVE CHANGES. NO ACUTE FINDINGS. Chest X-Ray 10/25/19 08:34 IMPRESSION: NO ACUTE RADIOGRAPHIC FINDING IN THE CHEST. Head CT 10/25/19 08:34 IMPRESSION: CHRONIC CHANGES OF ATROPHY AND MICROVASCULAR ISCHEMIA. NO ACUTE PROCESS. EVIDENCE OF ACUTE STROKE: NO. Assessment and Plan - Diagnosis (1) CIDP (chronic inflammatory demyelinating polyneuropathy) Is this a current diagnosis for this admission?: Yes Plan: We will give 2 g/kg IVIG in 3 divided doses, 1 dose per day x3 days. Will monitor for any sign of anaphylaxis. She is tolerated this well before so her neurologist does not think she will have a problem tolerating at this time. - Time Time Spent with patient: 35 or more minutes - Inpatient Certification Based on my medical assessment, after consideration of the patient's comorbidities, presenting symptoms, or acuity I expect that the services needed warrant INPATIENT care.: Yes I certify that my determination is in accordance with my understanding of Medicare's requirements for reasonable and necessary INPATIENT services [42 CFR 412.3e].: Yes Medical Necessity: Significant Comorbidiites Make Outpatient Treatment Too Risky, Need Close Monitoring Due to Risk of Patient Decompensation, Need For Continuous Telemetry Monitoring, Risk of Complication if Not Cared For in Hospital
[2019-10-25] MEDS: METFORMIN HCL 500 MG TABLET PO SCH (17:38)
[2019-10-25] MEDS: HYDROCODONE/ACETAMINOPHEN 5-325 MG TABLET PO PRN (17:41)
[2019-10-25] MEDS: ATORVASTATIN CALCIUM 40 MG TABLET PO SCH (22:00)
--- NOTE | 2019-10-26 05:18 | Progress Note ---
Provider Note Provider Note: Critical care note: 10/26/2019 Critical care onset: 04:31 Critical care issue: New onset hypertension I was asked by the patient's nurse to assess hypertension occurring in this patient with no prior history of same. Patient is comfortable and complaining of no discomfort at the present time despite having a systolic blood pressure of 179. Patient denies a history of hypertension and the findings as well as possible treatments are discussed with her at length. Physical exam chest is clear to auscultation throughout all johansen with unlabored respirations noted. Heart shows regular rate and rhythm without murmurs clicks gallops or rubs. Abdomen is soft with bowel sounds present throughout all 4 quadrants. Extremities reveal reveal no cyanosis or edema. Patient will be treated with hydralazine 20 mg IV every 4 hours as needed systolic blood pressure greater than 160 and/or diastolic blood pressure greater than 100. Patient be monitored closely through the remainder of my shift. Critical care end time: 05:17 Total critical care time: 31 minutes
[2019-10-26 05:23] LABS: HEMATOCRIT 40.1 % (36.0-47.0); HEMOGLOBIN 14.2 g/dL (12.0-15.5); MEAN CORPUSCULAR HGB CONC 35.4 g/dL (32.0-36.0); MEAN CORPUSCULAR VOLUME 90 fl (80-97); PLATELET COUNT 249 10^3/uL (150-450); RED BLOOD COUNT 4.44 10^6/uL (3.72-5.28); RED CELL DISTRIBUTION WIDTH 12.5 % (11.5-14.0); WHITE BLOOD COUNT 6.7 10^3/uL (4.0-10.5)
[2019-10-26 05:45] LABS: ANION GAP 10 (5-19); BLOOD UREA NITROGEN 13 mg/dL (7-20); CALCIUM 9.4 mg/dL (8.4-10.2); CARBON DIOXIDE 25 mmol/L (22-30); CHLORIDE 101 mmol/L (98-107); GLUCOSE 169 mg/dL (75-110); POTASSIUM 3.8 mmol/L (3.6-5.0)
[2019-10-26] MEDS: HEPARIN SOD (PORCINE) 5,000 UNIT/ML 1 ML VIAL SUBCUT SCH ×3 (06:30→22:22)
[2019-10-26] MEDS: HYDRALAZINE HCL INJ/PF 20 MG/1 ML SDV IV PRN (06:33)
--- NOTE | 2019-10-26 08:30 | RADIOLOGY REPORT (SQ) ---
EXAM DESCRIPTION: CT HEAD WITHOUT COMPLETED DATE/TIME: 10/26/2019 8:21 am REASON FOR STUDY: increased weakness COMPARISON: None. TECHNIQUE: Axial images acquired through the brain without intravenous contrast. Images reviewed wi th bone, brain and subdural windows. Additional sagittal and coronal reconstructions were generated. Images stored on PACS. All CT scanners at this facility use dose modulation, iterative reconstruction, and/or weight based d osing when appropriate to reduce radiation dose to as low as reasonably achievable (ALARA). [facility]: Dose Right [facility]: CareDose [facility]: Dose Right [facility]: Teradose 4D [facility]: better. RADIATION DOSE: CT Rad equipment meets quality standard of care and radiation dose reduction techniq ues were employed. CTDIvol: 53.2 mGy. DLP: 991 mGy-cm.mGy. LIMITATIONS: None. FINDINGS: VENTRICLES: Prominent. CEREBRUM: No masses. No hemorrhage. No midline shift. Areas of low density in the white matter mos t likely due to chronic micro-vascular ischemic change. No evidence for acute infarction. CEREBELLUM: No masses. No hemorrhage. No alteration of density. No evidence for acute infarction. EXTRAAXIAL SPACES: Age-related involutional change. No fluid collections. No masses. ORBITS AND GLOBE: No intra- or extraconal masses. Normal contour of globe without masses. CALVARIUM: No fracture. PARANASAL SINUSES: No fluid or mucosal thickening. SOFT TISSUES: No mass or hematoma. OTHER: No other significant finding. IMPRESSION: CHRONIC CHANGES OF ATROPHY AND MICROVASCULAR ISCHEMIA. NO ACUTE PROCESS. EVIDENCE OF ACUTE STROKE: NO. TECHNICAL DOCUMENTATION: JOB ID: [id number] Quality ID # [id number]: Final reports with documentation of one or more dose reduction techniques (e.g., Au tomated exposure control, adjustment of the mA and/or kV according to patient size, use of iterative reconstruction technique) 2010 [employer]- All Rights Reserved Reading location - IP/workstation name: [email or web address]
[2019-10-26] MEDS ORDERED: (PENDING PHARMACY ID) (Metformin Hcl [Metformin Hcl Er] 500 MG) PO SCH (10:00)
[2019-10-26] MEDS: GLIPIZIDE XL 5 MG TAB.ER.24 PO SCH (10:27)
[2019-10-26] MEDS: CONTAINER EMPTY IV SCH (10:27)
[2019-10-26] MEDS: METFORMIN HCL 500 MG TABLET PO SCH ×2 (10:27→18:06)
[2019-10-26] MEDS: IMMUNE GLOB GAM CAPRYLATE IV SCH (10:27)
[2019-10-26] MEDS: ONDANSETRON HCL INJ/PF 4 MG/2 ML SDV IV PRN (12:30)
[2019-10-26] MEDS: NORMAL SALINE 1000 ML 1,000 ML IV PRN (12:30)
--- NOTE | 2019-10-26 15:47 | PDOC PROGRESS REPORT ---
Subjective Progress Note for:: 10/26/19 Subjective:: Her blood pressure started to become elevated overnight. She is now on a blood pressure medication at home. She also had some episodes of tachycardia. She was put on some hydralazine overnight. She had an episode this morning where she did not feel like she could move her extremities and she had difficulty talking. A repeat head CT was done which was negative. Her symptoms improved spontaneously and she was talking better and able to move her extremities later on this morning. She was also able to drink fluids without difficulty but says she felt like her sense of taste was gone. Reason For Visit: [facility] Physical Exam Vital Signs: Temp Pulse Resp BP Pulse Ox 98.0 F 111 H 18 168/96 H 98 10/26/19 15:03 10/26/19 15:03 10/26/19 15:03 10/26/19 15:03 10/26/19 15:03 Intake & Output 10/25/19 10/26/19 10/27/19 06:59 06:59 06:59 Intake Total 1586 480 Balance 1586 480 Weight 79 kg General appearance: PRESENT: no acute distress, cooperative, disheveled Respiratory exam: PRESENT: clear to auscultation karlos, symmetrical, unlabored. ABSENT: accessory muscle use, chest wall tenderness, crackles, prolonged expiratory phas, retraction, rhonchi, tachypnea, wheezes Cardiovascular exam: PRESENT: RRR, +S1, +S2 Pulses: PRESENT: normal carotid pulses Vascular exam: PRESENT: normal capillary refill GI/Abdominal exam: PRESENT: normal bowel sounds, soft. ABSENT: distended, guarding, rebound, tenderness Extremities exam: ABSENT: clubbing, pedal edema Musculoskeletal exam: PRESENT: normal inspection. ABSENT: deformity Neurological exam: PRESENT: alert, awake, oriented to person, oriented to place, oriented to time, oriented to situation, CN II-XII grossly intact, motor sensory deficit - Numbness in the lower extremities distal to the knees bilaterally, numbness in the fingertips bilaterally Psychiatric exam: PRESENT: appropriate affect, normal mood Skin exam: PRESENT: dry, warm Results Laboratory Results: 10/26/19 04:47 10/26/19 04:47 10/26/19 10/26/19 04:47 04:47 WBC 6.7 RBC 4.44 Hgb 14.2 Hct 40.1 MCV 90 MCH 32.0 MCHC 35.4 RDW 12.5 Plt Count 249 Sodium 136.1 L Potassium 3.8 Chloride 101 Carbon Dioxide 25 Anion Gap 10 BUN 13 Creatinine 0.64 Est GFR ( Amer) > 60 Glucose 169 H Calcium 9.4 Impressions: Cervical Spine CT 10/25/19 08:34 IMPRESSION: CHRONIC DEGENERATIVE CHANGES. NO ACUTE FINDINGS. Chest X-Ray 10/25/19 08:34 IMPRESSION: NO ACUTE RADIOGRAPHIC FINDING IN THE CHEST. Head CT 10/26/19 00:00 IMPRESSION: CHRONIC CHANGES OF ATROPHY AND MICROVASCULAR ISCHEMIA. NO ACUTE PROCESS. EVIDENCE OF ACUTE STROKE: NO. Assessment and Plan - Diagnosis (1) CIDP (chronic inflammatory demyelinating polyneuropathy) Is this a current diagnosis for this admission?: Yes Plan: We are continuing her IVIG treatments. I am worried about her having some of the autonomic manifestations of Guillaine Orantes. She felt like she had to move her bowels earlier so that is good, but she has had some episodic tachycardia along with some episodic high blood pressures. Fortunately she has not had any respiratory compromise but we are watching closely for that. - Time Time Spent with patient: 25-34 minutes
[2019-10-26] MEDS: ATORVASTATIN CALCIUM 40 MG TABLET PO SCH (22:16)
[2019-10-27] MEDS: NORMAL SALINE 1000 ML 1,000 ML IV PRN ×2 (00:49→21:00)
[2019-10-27] MEDS: HYDROCODONE/ACETAMINOPHEN 5-325 MG TABLET PO PRN ×3 (05:33→21:15)
[2019-10-27] MEDS: HEPARIN SOD (PORCINE) 5,000 UNIT/ML 1 ML VIAL SUBCUT SCH ×3 (05:34→21:13)
[2019-10-27] MEDS: ONDANSETRON HCL INJ/PF 4 MG/2 ML SDV IV PRN (09:29)
[2019-10-27] MEDS: GLIPIZIDE XL 5 MG TAB.ER.24 PO SCH (09:30)
[2019-10-27] MEDS: METFORMIN HCL 500 MG TABLET PO SCH ×2 (09:30→17:11)
[2019-10-27] MEDS: CONTAINER EMPTY IV SCH (12:01)
[2019-10-27] MEDS: IMMUNE GLOB GAM CAPRYLATE IV SCH (12:01)
--- NOTE | 2019-10-27 13:28 | PDOC PROGRESS REPORT ---
Subjective Progress Note for:: 10/27/19 Subjective:: No adverse events overnight. Blood pressure has been stable, but is consistently elevated in the hypertensive range. She says if she sits up in the bed she is nauseated and so she wants to lay down in the bed to drink water which will not let her do. She is not had any more episodes like she had yesterday morning. She says she feels like the sensation in her legs is improving. Reason For Visit: [facility] Physical Exam Vital Signs: Temp Pulse Resp BP Pulse Ox 97.6 F 83 18 157/78 H 99 10/27/19 12:07 10/27/19 12:07 10/27/19 12:07 10/27/19 12:07 10/27/19 12:07 Intake & Output 10/26/19 10/27/19 10/28/19 06:59 06:59 06:59 Intake Total 1586 2640 Balance 1586 2640 Weight 79 kg 74 kg General appearance: PRESENT: no acute distress, cooperative, disheveled Respiratory exam: PRESENT: clear to auscultation karlos, symmetrical, unlabored. ABSENT: accessory muscle use, chest wall tenderness, crackles, prolonged expiratory phas, retraction, rhonchi, tachypnea, wheezes Cardiovascular exam: PRESENT: RRR, +S1, +S2 Pulses: PRESENT: normal carotid pulses Vascular exam: PRESENT: normal capillary refill GI/Abdominal exam: PRESENT: normal bowel sounds, soft. ABSENT: distended, guarding, rebound, tenderness Extremities exam: ABSENT: clubbing, pedal edema Musculoskeletal exam: PRESENT: normal inspection. ABSENT: deformity Neurological exam: PRESENT: alert, awake, oriented to person, oriented to place, oriented to time, oriented to situation, CN II-XII grossly intact, motor sensory deficit - Numbness in the lower extremities distal to the knees bilaterally, numbness in the fingertips bilaterally Psychiatric exam: PRESENT: appropriate affect, normal mood Skin exam: PRESENT: dry, warm Results Laboratory Results: 10/26/19 04:47 10/26/19 04:47 Impressions: Cervical Spine CT 10/25/19 08:34 IMPRESSION: CHRONIC DEGENERATIVE CHANGES. NO ACUTE FINDINGS. Chest X-Ray 10/25/19 08:34 IMPRESSION: NO ACUTE RADIOGRAPHIC FINDING IN THE CHEST. Head CT 10/26/19 00:00 IMPRESSION: CHRONIC CHANGES OF ATROPHY AND MICROVASCULAR ISCHEMIA. NO ACUTE PROCESS. EVIDENCE OF ACUTE STROKE: NO. Assessment and Plan - Diagnosis (1) CIDP (chronic inflammatory demyelinating polyneuropathy) Is this a current diagnosis for this admission?: Yes Plan: The worsening of her symptoms that she seemed to be experiencing yesterday has improved. She seems to be back to the level that she was at when she first presented to the ER. She is to get another dose of IVIG today, which should be her third dose in the last of her series. She will likely need to go home with someone to be there with her for a few days because she may not have improvement of her symptoms overall for up to a week. We will make sure she has follow-up arranged with her neurologist. (2) Hypertension Qualifiers: Hypertension type: essential hypertension Qualified Code(s): I10 - Essential (primary) hypertension Is this a current diagnosis for this admission?: Yes Plan: Her blood pressure has been consistently elevated and I believe it is chronic. I will start her on some lisinopril. - Time Time Spent with patient: 15-24 minutes
[2019-10-27] MEDS ORDERED: LISINOPRIL 10 MG TABLET PO ONE (14:00)
[2019-10-27] MEDS: ATORVASTATIN CALCIUM 40 MG TABLET PO SCH (21:13)
[2019-10-28] MEDS: HYDROCODONE/ACETAMINOPHEN 5-325 MG TABLET PO PRN ×3 (03:30→21:20)
[2019-10-28] MEDS: HYDRALAZINE HCL INJ/PF 20 MG/1 ML SDV IV PRN (03:30)
[2019-10-28] MEDS: HEPARIN SOD (PORCINE) 5,000 UNIT/ML 1 ML VIAL SUBCUT SCH ×3 (05:38→21:20)
[2019-10-28] MEDS: GLIPIZIDE XL 5 MG TAB.ER.24 PO SCH (08:15)
[2019-10-28] MEDS: METFORMIN HCL 500 MG TABLET PO SCH ×2 (08:15→16:54)
[2019-10-28] MEDS: LISINOPRIL 10 MG TABLET PO SCH (09:40)
[2019-10-28] MEDS: NORMAL SALINE 1000 ML 1,000 ML IV PRN (09:40)
--- NOTE | 2019-10-28 11:55 | EKG REPORT ---
SEVERITY:- ABNORMAL ECG - SINUS RHYTHM LEFT ANTERIOR FASCICULAR BLOCK PROBABLE LEFT VENTRICULAR HYPERTROPHY BORDERLINE PROLONGED QT INTERVAL : Confirmed by: Terri Stroud 28-Oct-2019 11:54:26
--- NOTE | 2019-10-28 13:36 | PDOC PROGRESS REPORT ---
Subjective Progress Note for:: 10/28/19 Subjective:: No adverse events overnight. Blood pressure has been stable, improved somewhat after lisinopril yesterday. No more nausea. She says her legs feel pretty good. No trouble breathing. When the nurses tried to get her up she was fairly wobbly on her feet. Reason For Visit: [facility] Physical Exam Vital Signs: Temp Pulse Resp BP Pulse Ox 97.2 F 93 16 149/59 H 99 10/28/19 07:42 10/28/19 07:42 10/28/19 07:42 10/28/19 07:42 10/28/19 07:42 Intake & Output 10/27/19 10/28/19 10/29/19 06:59 06:59 06:59 Intake Total 2640 2172 1000 Output Total 1100 Balance 2640 1072 1000 Weight 74 kg 77.3 kg General appearance: PRESENT: no acute distress, cooperative, disheveled Respiratory exam: PRESENT: clear to auscultation karlos, symmetrical, unlabored. ABSENT: accessory muscle use, chest wall tenderness, crackles, prolonged expiratory phas, retraction, rhonchi, tachypnea, wheezes Cardiovascular exam: PRESENT: RRR, +S1, +S2 Pulses: PRESENT: normal carotid pulses Vascular exam: PRESENT: normal capillary refill GI/Abdominal exam: PRESENT: normal bowel sounds, soft. ABSENT: distended, guarding, rebound, tenderness Extremities exam: ABSENT: clubbing, pedal edema Musculoskeletal exam: PRESENT: normal inspection. ABSENT: deformity Neurological exam: PRESENT: alert, awake, oriented to person, oriented to place, oriented to time, oriented to situation, CN II-XII grossly intact, motor sensory deficit -improved sensation in the lower extremities distal to the knees bilaterally, normal sensation in the fingertips bilaterally Psychiatric exam: PRESENT: appropriate affect, normal mood Skin exam: PRESENT: dry, warm Results Laboratory Results: 10/26/19 04:47 10/26/19 04:47 Impressions: Cervical Spine CT 10/25/19 08:34 IMPRESSION: CHRONIC DEGENERATIVE CHANGES. NO ACUTE FINDINGS. Chest X-Ray 10/25/19 08:34 IMPRESSION: NO ACUTE RADIOGRAPHIC FINDING IN THE CHEST. Head CT 10/26/19 00:00 IMPRESSION: CHRONIC CHANGES OF ATROPHY AND MICROVASCULAR ISCHEMIA. NO ACUTE PROCESS. EVIDENCE OF ACUTE STROKE: NO. Assessment and Plan - Diagnosis (1) CIDP (chronic inflammatory demyelinating polyneuropathy) Is this a current diagnosis for this admission?: Yes Plan: She has completed 3 treatments for a total of 2 g/kg of IVIG. She has been a little weak on her feet and so we will get a get a physical therapy evaluation. (2) Hypertension Qualifiers: Hypertension type: essential hypertension Qualified Code(s): I10 - Essential (primary) hypertension Is this a current diagnosis for this admission?: Yes Plan: We started her on some lisinopril and she has had some improvement, her systolic is down in the 140s instead of the 170s. - Time Time Spent with patient: 15-24 minutes
[2019-10-28] MEDS: ATORVASTATIN CALCIUM 40 MG TABLET PO SCH (21:20)
[2019-10-29] MEDS: HEPARIN SOD (PORCINE) 5,000 UNIT/ML 1 ML VIAL SUBCUT SCH (05:15)
[2019-10-29] MEDS: HYDROCODONE/ACETAMINOPHEN 5-325 MG TABLET PO PRN (05:16)
[2019-10-29] MEDS: GLIPIZIDE XL 5 MG TAB.ER.24 PO SCH (09:39)
[2019-10-29] MEDS: LISINOPRIL 10 MG TABLET PO SCH (09:39)
[2019-10-29] MEDS: METFORMIN HCL 500 MG TABLET PO SCH (09:39)
[2019-10-29 10:25] VITALS: BP 138/60
--- NOTE | 2019-10-29 15:15 | PDOC DISCHARGE SUMMARY ---
Impression - Admit/DC Date/PCP Admission Date/Primary Care Provider: 10/25/19 11:46 Discharge Date: 10/29/19 - Discharge Diagnosis (1) CIDP (chronic inflammatory demyelinating polyneuropathy) Is this a current diagnosis for this admission?: Yes (2) Hypertension Is this a current diagnosis for this admission?: Yes - Additional Information Resuscitation Status: Do Not Resuscitate Discharge Diet: Diabetic Discharge Activity: Supervised Activity Referrals: MARCO TRUONG DO [NO LOCAL MD] - 11/14/19 2:15 pm (1-2 weeks) JAMES DORSEY MD [COMMUNITY BASED STAFF] - 11/01/19 10:30 am ( for [facility] ([id number])) Prescriptions: Lisinopril [Prinivil 10 mg Tablet] 10 mg PO DAILY #30 tablet Home Medications: Atorvastatin Calcium [Lipitor 40 mg Tablet] 40 mg PO QHS 10/25/19 Glipizide [Glipizide Xl] 5 mg PO QAM 10/25/19 Metformin HCl [Metformin HCl ER] 500 mg PO DAILY 10/25/19 Lisinopril [Prinivil 10 mg Tablet] 10 mg PO DAILY #30 tablet 10/29/19 History of Present Illiness History of Present Illness: ANDREW HUIZAR is a 79 year old female with a history of chronic inflammatory demyelinating polyneuropathy who has had periodic IVIG infusions over time. She began to have recurrence of symptoms that manifested as pain in her feet and her fingers a few days ago. Her neurologist in [place] was attempting to arrange for her to get IVIG at home, but she had progression of her symptoms primarily with numbness and pain in the lower extremities and now she has symptoms up to her knees bilaterally. Her neurologist has recommended that she be admitted for 3 days of IVIG. She is not having any trouble breathing. Hospital Course Hospital Course: She had an initial worsening of her symptoms during the first 24 hours in the hospital but then she improved without use of any other adjunctive treatments. She completed the course of 2 g/kg of IVIG over the course of 3 days. Her mobility, which was not very good to begin with, was back to his baseline. She was evaluated by physical therapy who recommended home health PT. The patient already has a walker at home. Patient was apparently living by herself but she is going to go home with her brother for the foreseeable future. She has follow-up arranged with her neurologist in [place]. Her labs and examination were reassuring and she was discharged in stable condition. Physical Exam Vital Signs: Temp Pulse Resp BP Pulse Ox 98.0 F 91 16 138/60 H 97 10/29/19 10:23 10/29/19 10:23 10/29/19 10:23 10/29/19 10:23 10/29/19 10:23 Intake & Output 10/28/19 10/29/19 10/30/19 06:59 06:59 06:59 Intake Total 2172 1675 Output Total 1100 800 Balance 1072 875 Weight 77.3 kg 77.5 kg General appearance: PRESENT: no acute distress, cooperative, disheveled Respiratory exam: PRESENT: clear to auscultation karlos, symmetrical, unlabored. ABSENT: accessory muscle use, chest wall tenderness, crackles, prolonged expiratory phas, retraction, rhonchi, tachypnea, wheezes Cardiovascular exam: PRESENT: RRR, +S1, +S2 Pulses: PRESENT: normal carotid pulses Vascular exam: PRESENT: normal capillary refill GI/Abdominal exam: PRESENT: normal bowel sounds, soft. ABSENT: distended, guarding, rebound, tenderness Extremities exam: ABSENT: clubbing, pedal edema Musculoskeletal exam: PRESENT: normal inspection. ABSENT: deformity Neurological exam: PRESENT: alert, awake, oriented to person, oriented to place, oriented to time, oriented to situation, CN II-XII grossly intact, motor sensory deficit -improved sensation in the lower extremities distal to the knees bilaterally, normal sensation in the fingertips bilaterally Psychiatric exam: PRESENT: appropriate affect, normal mood Skin exam: PRESENT: dry, warm Results Laboratory Results: WBC 6.7 10^3/uL (4.0-10.5) 10/26/19 04:47 RBC 4.44 10^6/uL (3.72-5.28) 10/26/19 04:47 Hgb 14.2 g/dL (12.0-15.5) 10/26/19 04:47 Hct 40.1 % (36.0-47.0) 10/26/19 04:47 MCV 90 fl (80-97) 10/26/19 04:47 MCH 32.0 pg (27.0-33.4) 10/26/19 04:47 MCHC 35.4 g/dL (32.0-36.0) 10/26/19 04:47 RDW 12.5 % (11.5-14.0) 10/26/19 04:47 Plt Count 249 10^3/uL (150-450) 10/26/19 04:47 Lymph % (Auto) 19.2 % (13-45) 10/25/19 08:33 [place] % (Auto) 7.0 % (3-13) 10/25/19 08:33 Eos % (Auto) 0.3 % (0-6) 10/25/19 08:33 Baso % (Auto) 0.3 % (0-2) 10/25/19 08:33 Absolute Neuts (auto) 9.5 10^3/uL (1.7-8.2) H 10/25/19 08:33 Absolute Lymphs (auto) 2.5 10^3/uL (0.5-4.7) 10/25/19 08:33 Absolute Monos (auto) 0.9 10^3/uL (0.1-1.4) 10/25/19 08:33 Absolute Eos (auto) 0.0 10^3/uL (0.0-0.6) 10/25/19 08:33 Absolute Basos (auto) 0.0 10^3/uL (0.0-0.2) 10/25/19 08:33 Seg Neutrophils % 73.2 % (42-78) 10/25/19 08:33 Sodium 136.1 mmol/L (137-145) L 10/26/19 04:47 Potassium 3.8 mmol/L (3.6-5.0) 10/26/19 04:47 Chloride 101 mmol/L (98-107) 10/26/19 04:47 Carbon Dioxide 25 mmol/L (22-30) 10/26/19 04:47 Anion Gap 10 (5-19) 10/26/19 04:47 BUN 13 mg/dL (7-20) 10/26/19 04:47 Creatinine 0.64 mg/dL (0.52-1.25) 10/26/19 04:47 Est GFR ( Amer) > 60 (>60) 10/26/19 04:47 Est GFR (MDRD) Non-Af > 60 (>60) 10/26/19 04:47 Glucose 169 mg/dL (75-110) H 10/26/19 04:47 POC Glucose 158 mg/dL (70-110) H 10/26/19 21:42 Calcium 9.4 mg/dL (8.4-10.2) 10/26/19 04:47 Total Bilirubin 0.8 mg/dL (0.2-1.3) 10/25/19 08:33 Direct Bilirubin 0.0 mg/dL (0.0-0.4) 10/25/19 08:33 Neonat Total Bilirubin Not Reportable 10/25/19 08:33 Neonat Direct Bilirubin Not Reportable 10/25/19 08:33 Neonat Indirect Bili Not Reportable 10/25/19 08:33 AST 36 U/L (14-36) 10/25/19 08:33 ALT 25 U/L (<35) 10/25/19 08:33 Alkaline Phosphatase 98 U/L (38-126) 10/25/19 08:33 Total Protein 7.5 g/dL (6.3-8.2) 10/25/19 08:33 Albumin 4.6 g/dL (3.5-5.0) 10/25/19 08:33 Urine Color YELLOW 10/25/19 10:38 Urine Appearance CLEAR 10/25/19 10:38 Urine pH 7.0 (5.0-9.0) 10/25/19 10:38 Ur Specific [place] 1.009 10/25/19 10:38 Urine Protein NEGATIVE mg/dL (NEGATIVE) 10/25/19 10:38 Urine Glucose (UA) NEGATIVE mg/dL (NEGATIVE) 10/25/19 10:38 Urine Ketones NEGATIVE mg/dL (NEGATIVE) 10/25/19 10:38 Urine Blood NEGATIVE (NEGATIVE) 10/25/19 10:38 Urine Nitrite NEGATIVE (NEGATIVE) 10/25/19 10:38 Urine Bilirubin NEGATIVE (NEGATIVE) 10/25/19 10:38 Urine Urobilinogen NEGATIVE mg/dL (<2.0) 10/25/19 10:38 Ur Leukocyte Esterase NEGATIVE (NEGATIVE) 10/25/19 10:38 Urine WBC (Auto) 2 /HPF 10/25/19 10:38 Urine RBC (Auto) 1 /HPF 10/25/19 10:38 U Hyaline Cast (Auto) 4 /LPF 10/25/19 10:38 Urine Bacteria (Auto) TRACE /HPF 10/25/19 10:38 Squamous Epi Cells Auto 1 /HPF 10/25/19 10:38 Urine Mucus (Auto) OCC /LPF 10/25/19 10:38 Urine Ascorbic Acid NEGATIVE (NEGATIVE) 10/25/19 10:38 Impressions: Cervical Spine CT 10/25/19 08:34 IMPRESSION: CHRONIC DEGENERATIVE CHANGES. NO ACUTE FINDINGS. Chest X-Ray 10/25/19 08:34 IMPRESSION: NO ACUTE RADIOGRAPHIC FINDING IN THE CHEST. Head CT 10/25/19 08:34 IMPRESSION: CHRONIC CHANGES OF ATROPHY AND MICROVASCULAR ISCHEMIA. NO ACUTE PROCESS. EVIDENCE OF ACUTE STROKE: NO. Head CT 10/26/19 00:00 IMPRESSION: CHRONIC CHANGES OF ATROPHY AND MICROVASCULAR ISCHEMIA. NO ACUTE PROCESS. EVIDENCE OF ACUTE STROKE: NO. Plan Time Spent: Greater than 30 Minutes Stroke Is this a Stroke Patient?: No Acute Heart Failure - Is this a Heart Failure Patient?: No
== END 2019-10-29 11:10 | disposition home health service (06) | DRG 74 ==
LOC: ER 07:22 → EH 11:46 → 3W 16:04
PROVIDERS: ADMIT Family Medicine; ATTEND Family Medicine
DX: G61.81 Chronic inflammatory demyelinating polyneuritis (principal); I10 Essential (primary) hypertension; E78.5 Hyperlipidemia, unspecified; E78.00 Pure hypercholesterolemia, unspecified; R29.6 Repeated falls; E11.9 Type 2 diabetes mellitus without complications; Z95.4 Presence of other heart-valve replacement; Z79.899 Other long term (current) drug therapy
CPT/HCPCS: 36415; 70450; 71046; 72125; 80048; 80053; 81001; 82962; 85025; 85027; 93005; 93010; 96360; 96361; 99285; J1561; J0360; J1644; J2405; J3490; J7030

== ENCOUNTER 2019-12-27 10:09 | Emergency (ER) | payer MEDICARE, BC ==
[2019-12-27 11:03] LABS: HEMOGLOBIN 14.3 g/dL (12.0-15.5); MEAN CORPUSCULAR HEMOGLOBIN 32.2 pg (27.0-33.4); MEAN CORPUSCULAR HGB CONC 35.7 g/dL (32.0-36.0); MEAN CORPUSCULAR VOLUME 90 fl (80-97); PLATELET COUNT 191 10^3/uL (150-450); RED BLOOD COUNT 4.44 10^6/uL (3.72-5.28); RED CELL DISTRIBUTION WIDTH 15.8 % (11.5-14.0); WHITE BLOOD COUNT 15.3 10^3/uL (4.0-10.5)
[2019-12-27 11:18] LABS: ALBUMIN 3.6 g/dL (3.5-5.0); ALKALINE PHOSPHATASE 97 U/L (38-126); ASPARTATE AMINO TRANSFERASE 28 U/L (14-36); BILIRUBIN,DIRECT 0.1 mg/dL (0.0-0.4); BLOOD UREA NITROGEN 25 mg/dL (7-20); CALCIUM 9.4 mg/dL (8.4-10.2); CARBON DIOXIDE 30 mmol/L (22-30); CHLORIDE 101 mmol/L (98-107); GLUCOSE 265 mg/dL (75-110); POTASSIUM 3.6 mmol/L (3.6-5.0); TOTAL PROTEIN 6.1 g/dL (6.3-8.2)
[2019-12-27 11:22] LABS: ANION GAP 4 (5-19)
[2019-12-27 11:24] LABS: ABSOLUTE LYMPHOCYTES# (MANUAL) 1.7 10^3/uL (0.5-4.7); ABSOLUTE MONOCYTES # (MANUAL) 1.1 10^3/uL (0.1-1.4); BASOPHILS % (MANUAL) 0 % (0-2); EOSINOPHILS % (MANUAL) 0 % (0-6); LYMPHOCYTES % (MANUAL) 11 % (13-45); MONOCYTES % (MANUAL) 7 % (3-13); SEGMENTED NEUTROPHILS % (MAN) 82 % (42-78); TOTAL CELLS COUNTED 100
[2019-12-27 11:25] LABS: ANISOCYTOSIS SLIGHT; PLATELET COMMENT ADEQUATE; TOXIC GRANULATION 1+
[2019-12-27] MEDS ORDERED: GABAPENTIN 300 MG CAPSULE PO ONE (12:01)
[2019-12-27] MEDS ORDERED: RINGERS SOLUTION,LACTATED 1,000 ML IV ONE (12:01)
--- NOTE | 2019-12-27 12:07 | ER Document Report ---
ED General - General Chief Complaint: Numbness Stated Complaint: WEAKNESS,BURNING PAIN Time Seen by Provider: 12/27/19 11:02 Primary Care Provider: JAMES DORSEY MD [Primary Care Provider] - Follow up as needed Notes: 79-year-old female with a history of CIDP and diabetic neuropathy presents the emergency department stating that since leaving rehab she has progressively worsened. States she can now no longer walk, she has severe hand and foot pain and since being diagnosed with CIDP approximately 1 month ago she has gone from 170 pounds down to 147 pounds. Patient states that she was initially on high-dose IV prednisone at [facility], was sent to [facility] and was improving there, patient was then discharged home on 07 December and states that her status started to worsen on the . Patient states that she now cannot walk at all, prior to not being able to walk she started having daily falls. Patient states approximately 1 week ago when she fell she developed some pain in her neck although she did not have an acute worsening of her neurologic symptoms. States she spoke with her neurologist at [facility] Dr. Bro who is very concerned and suggested that they should come to [facility] for further evaluation and likely admission. She states that [facility] was far enough away that they came here instead. TRAVEL OUTSIDE OF THE [place] IN LAST 30 DAYS: No - Related Data Allergies/Adverse Reactions: No Known Allergies Allergy (Verified 08/19/19 18:33) Home Medications: prednisone, metformin, duloxetine, pantoprazole, midodrine, gabapentin, atorvastatin Past Medical History - General Information source: Patient, Outside Facility Records - Social History Smoking Status: Former Smoker Chew tobacco use (# tins/day): No Frequency of alcohol use: None Drug Abuse: None Family History: Reviewed & Not Pertinent, DM Patient has suicidal ideation: No Patient has homicidal ideation: No - Past Medical History Cardiac Medical History: Reports: Hx Atrial Fibrillation, Hx Hypercholesterolemia Endocrine Medical History: Reports: Hx Diabetes Mellitus Type 2 Renal/ Medical History: Denies: Hx Peritoneal Dialysis Musculoskeletal Medical History: Reports Hx Musculoskeletal Deformity, Reports Hx Musculoskeletal Trauma Past Surgical History: Reports: Hx Section, Hx Cholecystectomy, Hx Open Heart Surgery - Mitral valvuloplasty and (Porcine) Aortic valve replacement February 2014 - Immunizations Hx Diphtheria, Pertussis, Tetanus Vaccination: Yes Review of Systems - Review of Systems Constitutional: Weakness, Weight loss. denies: Chills, Diaphoresis, Fever, Malaise EENT: No symptoms reported Cardiovascular: No symptoms reported. denies: Chest pain, Syncope, Dizziness, Lightheaded Respiratory: No symptoms reported Gastrointestinal: No symptoms reported Musculoskeletal: See HPI, Neck pain Neurological/Psychological: See HPI, Gait changes, Loss of power -: Yes All other systems reviewed and negative Physical Exam - Vital signs Vitals: Resp Pulse Ox 18 95 12/27/19 10:15 12/27/19 10:15 Interpretation: Hypertensive, Tachycardic - Notes Notes: GENERAL: Alert, interacts well. No acute distress. HEAD: Normocephalic, atraumatic EYES: Pupils equal, round and reactive to light, extraocular movements intact. ENT: Oral mucosa moist, tongue midline. NECK: Full range of motion, supple, trachea midline. LUNGS: Clear to auscultation bilaterally, no wheezes, rales or rhonchi, no respiratory distress. HEART: Tachycardic rate and rhythm, 3 out of 6 systolic murmur best heard at Erb's point, no gallops or rubs. ABDOMEN: Soft, nontender, nondistended, bowel sounds present in all 4 quadrants. EXTREMITIES: No edema, radial and dorsalis pedis pulses 2/4 bilaterally. No cyanosis. NEUROLOGICAL: Alert and oriented x3, normal speech, cranial nerves II through XII grossly intact, biceps and patellar DTRs 1+ bilaterally. 5-5 muscle strength in the bilateral upper extremities, 3 out of 5 muscle strength in the bilateral lower extremities. PSYCH: Normal mood, normal affect. Surprisingly cheery considering she cannot walk. SKIN: Warm, Dry, normal turgor. Course - Re-evaluation Re-evalutation: 12/27/19 15:08 CBC shows leukocytosis of 15.3 but this is likely related to the prednisone she is still taking, CMP shows elevated glucose at 265 again likely related to the steroid she is taking, urinalysis is a catheter urine that shows some dehydration, trace leukocyte esterase, 3+ bacteria. Given the fact that she is not symptomatic I do suspect this is colonization rather than true infection. It has been sent for culture. Cervical Spine CT 12/27/19 12:00 IMPRESSION: CHRONIC DEGENERATIVE CHANGES. NO ACUTE FINDINGS. Head CT 12/27/19 12:00 IMPRESSION: CHRONIC CHANGES OF ATROPHY AND MICROVASCULAR ISCHEMIA. NO ACUTE PROCESS. EVIDENCE OF ACUTE STROKE: NO. I discussed the patient with Dr. Menendez from neurology at [facility] who agrees this is likely a CIDP flare and this is the timeframe within which the IVIG would be wearing off. He recommends admitting for IVIG. States that before hospital has IVIG and is comfortable keeping the patient here he would be happy to advise over the phone but also states that if we do not have IVIG or if our inpatient team is not comfortable taking care of this as we do not have neurology in house that he would be happy to accept the patient. Discussed with Dr. Wei from internal medicine who states that we have not been able to access IVIG for several weeks and that as we do not have neurology does not feel the patient will be well served by staying at this facility. I have a phone call out to [facility] transfer center to initiate a transfer to their facility. 12/27/19 15:11 Patient just had sudden onset of epigastric abdominal pain that she states feels like she is suffocating. When she is sitting up it feels somewhat better. EKG was performed does not reveal any abnormality beyond tachycardia. There are no acute ischemic changes. Patient was given GI cocktail. States she feels much better. Also states that it will be back in 45 minutes. At this point patient now admits that she has been having this pain intermittently for several months and does not know what it is. 12/27/19 15:17 Dr. Menendez has accepted the patient. - Vital Signs Vital signs: Temp Pulse Resp BP Pulse Ox 98.8 F 113 H 16 146/76 H 96 12/27/19 10:33 12/27/19 10:33 12/27/19 13:00 12/27/19 12:01 12/27/19 12:01 - Laboratory Result Diagrams: 12/27/19 10:24 12/27/19 10:24 Laboratory results interpreted by me: 12/27/19 12/27/19 12/27/19 10:24 10:24 11:48 WBC 15.3 H RDW 15.8 H Seg Neuts % (Manual) 82 H Lymphocytes % (Manual) 11 L Abs Neuts (Manual) 12.5 H Sodium 134.8 L Anion Gap 4 L BUN 25 H Glucose 265 H Total Protein 6.1 L Urine Protein 30 H Urine Glucose (UA) 50 H Urine Ketones TRACE H Urine Urobilinogen 4.0 H Ur Leukocyte Esterase TRACE H - EKG Interpretation by Me Additional EKG results interpreted by me: 12/27/19 15:13 EKG 12/27/19 15:18 EKG shows sinus tachycardia at a rate of 104, left anterior hemiblock, normal intervals, no ST segment elevations or depressions, isolated T wave inversions in aVL per my interpretation. Discharge - Discharge Clinical Impression: CIDP (chronic inflammatory demyelinating polyneuropathy), Unable to ambulate, Paresthesia Condition: Good Disposition: [facility] Referrals: JAMES DORSEY MD [Primary Care Provider] - Follow up as needed
--- NOTE | 2019-12-27 13:09 | RADIOLOGY REPORT (SQ) ---
EXAM DESCRIPTION: CT HEAD WITHOUT IMAGES COMPLETED DATE/TIME: 12/27/2019 12:45 pm REASON FOR STUDY: fall, new neck pain, diff walking COMPARISON: None. TECHNIQUE: Axial images acquired through the brain without intravenous contrast. Images reviewed wi th bone, brain and subdural windows. Additional sagittal and coronal reconstructions were generated. Images stored on PACS. All CT scanners at this facility use dose modulation, iterative reconstruction, and/or weight based d osing when appropriate to reduce radiation dose to as low as reasonably achievable (ALARA). [facility]: Dose Right [facility]: CareDose [facility]: Dose Right [facility]: Teradose 4D [facility]: [employer] RADIATION DOSE: CT Rad equipment meets quality standard of care and radiation dose reduction techniq ues were employed. CTDIvol: 53.2 mGy. DLP: 964 mGy-cm.mGy. LIMITATIONS: None. FINDINGS: VENTRICLES: Prominent. CEREBRUM: No masses. No hemorrhage. No midline shift. Areas of low density in the white matter mos t likely due to chronic micro-vascular ischemic change. No evidence for acute infarction. CEREBELLUM: No masses. No hemorrhage. No alteration of density. No evidence for acute infarction. EXTRAAXIAL SPACES: Age-related involutional change. No fluid collections. No masses. ORBITS AND GLOBE: No intra- or extraconal masses. Normal contour of globe without masses. CALVARIUM: No fracture. PARANASAL SINUSES: No fluid or mucosal thickening. SOFT TISSUES: No mass or hematoma. OTHER: No other significant finding. IMPRESSION: CHRONIC CHANGES OF ATROPHY AND MICROVASCULAR ISCHEMIA. NO ACUTE PROCESS. EVIDENCE OF ACUTE STROKE: NO. TECHNICAL DOCUMENTATION: JOB ID: [id number] Quality ID # [id number]: Final reports with documentation of one or more dose reduction techniques (e.g., Au tomated exposure control, adjustment of the mA and/or kV according to patient size, use of iterative reconstruction technique) 2010 [employer]- All Rights Reserved Reading location - IP/workstation name: [email or web address]
[2019-12-27 13:11] LABS: AMORPHOUS SEDIMENT,URINE 1+ /HPF; APPEARANCE,URINE TURBID; BILIRUBIN,URINE NEGATIVE (NEGATIVE); COLOR,URINE YELLOW; GLUCOSE, URINE 50 mg/dL (NEGATIVE); KETONES,URINE TRACE mg/dL (NEGATIVE); LEUKOCYTE ESTERASE,URINE TRACE (NEGATIVE); NITRITE,URINE NEGATIVE (NEGATIVE); PROTEIN,URINE 30 mg/dL (NEGATIVE)
--- NOTE | 2019-12-27 13:12 | RADIOLOGY REPORT (SQ) ---
EXAM DESCRIPTION: CT CERVICAL SPINE WITHOUT IMAGES COMPLETED DATE/TIME: 12/27/2019 12:45 pm REASON FOR STUDY: fall, new neck pain, diff walking COMPARISON: None. TECHNIQUE: Axial images acquired through the cervical spine without intravenous contrast. Images re viewed with lung, soft tissue and bone windows. Reconstructed coronal and sagittal MPR images review ed. Images stored on PACS. All CT scanners at this facility use dose modulation, iterative reconstruction, and/or weight based d osing when appropriate to reduce radiation dose to as low as reasonably achievable (ALARA). [facility]: Dose Right [facility]: CareDose [facility]: Dose Right [facility]: Teradose 4D [facility]: [employer] RADIATION DOSE: CT Rad equipment meets quality standard of care and radiation dose reduction techniq ues were employed. CTDIvol: 22.3 mGy. DLP: 494 mGy-cm. mGy. LIMITATIONS: None. FINDINGS: ALIGNMENT: Anatomic. MINERALIZATION: Normal. VERTEBRAL BODIES: No fractures or dislocation. DISCS: Multilevel disc space narrowing with osteophytes. FACETS, LATERAL MASSES, POSTERIOR ELEMENTS: Facet arthropathy. No fractures. No dislocation. No ac jessi findings. HARDWARE: None in the spine. VISUALIZED RIBS: No fractures. LUNG APICES AND SOFT TISSUES: No significant or acute findings. OTHER: No other significant finding. IMPRESSION: CHRONIC DEGENERATIVE CHANGES. NO ACUTE FINDINGS. TECHNICAL DOCUMENTATION: JOB ID: [id number] Quality ID # [id number]: Final reports with documentation of one or more dose reduction techniques (e.g., Au tomated exposure control, adjustment of the mA and/or kV according to patient size, use of iterative reconstruction technique) 2010 [employer]- All Rights Reserved Reading location - IP/workstation name: [email or web address]
[2019-12-27] MEDS ORDERED: LIDOCAINE 2% VISCOUS SOLN 15 ML UDCUP PO ONE (14:49)
[2019-12-27] MEDS ORDERED: MAG HYDROX/AL HYDROX/SIMETH SUSP 30 ML UDCUP PO ONE (14:49)
[2019-12-27] MEDS ORDERED: METOCLOPRAMIDE HCL ORAL SOLN 10 MG/10 ML UDCUP PO ONE (14:49)
[2019-12-27 17:05] VITALS: BP 146/97
--- NOTE | 2019-12-27 23:58 | EKG REPORT ---
SEVERITY:- ABNORMAL ECG - SINUS TACHYCARDIA LEFT ANTERIOR FASCICULAR BLOCK NONSPECIFIC T ABNORMALITIES, LATERAL LEADS : Confirmed by: Terri Stroud 27-Dec-2019 23:57:43
== END 2019-12-27 17:05 | disposition short-term general hospital (02) ==
LOC: ER 10:09
DX: E11.42 Type 2 diabetes mellitus with diabetic polyneuropathy (principal); E11.65 Type 2 diabetes mellitus with hyperglycemia; M47.812 Spondylosis without myelopathy or radiculopathy, cervical region; M54.2 Cervicalgia; W19.XXXA Unspecified fall, initial encounter; E86.0 Dehydration; R10.13 Epigastric pain; R27.0 Ataxia, unspecified; R53.1 Weakness; D72.829 Elevated white blood cell count, unspecified; R63.4 Abnormal weight loss; R00.0 Tachycardia, unspecified; R01.1 Cardiac murmur, unspecified; E78.00 Pure hypercholesterolemia, unspecified; Z87.891 Personal history of nicotine dependence; Z79.52 Long term (current) use of systemic steroids; Z79.84 Long term (current) use of oral hypoglycemic drugs; Z79.899 Other long term (current) drug therapy
CPT/HCPCS: 93005; 99285; 96360; 36415; 87086; 85025; 87088; 80053; 81001; 87186; 70450; 72125; 93010; J3490; A9270 ×3; J7120

== ENCOUNTER → 2020-01-19 | Outpatient (CLI) | payer MEDICARE, BC ==
[2020-01-19 09:13] LABS: ABSOLUTE LYMPHOCYTES (AUTO) 1.4 10^3/uL (0.5-4.7); ABSOLUTE MONOCYTES (AUTO) 0.4 10^3/uL (0.1-1.4); ABSOLUTE NEUT (AUTO) 5.7 10^3/uL (1.7-8.2); BASOPHILS % (AUTO) 0.6 % (0-2); EOSINOPHILS % (AUTO) 0.4 % (0-6); HEMATOCRIT 27.9 % (36.0-47.0); LYMPHOCYTES % (AUTO) 19.1 % (13-45); MEAN CORPUSCULAR HEMOGLOBIN 33.2 pg (27.0-33.4); MEAN CORPUSCULAR HGB CONC 35.8 g/dL (32.0-36.0); MEAN CORPUSCULAR VOLUME 93 fl (80-97); MONOCYTES % (AUTO) 4.9 % (3-13); PLATELET COUNT 211 10^3/uL (150-450); RED CELL DISTRIBUTION WIDTH 17.1 % (11.5-14.0); TOTAL CELLS COUNTED % (AUTO) 100 %; WHITE BLOOD COUNT 7.6 10^3/uL (4.0-10.5)
[2020-01-19 09:36] LABS: ALBUMIN 3.3 g/dL (3.5-5.0); ALKALINE PHOSPHATASE 57 U/L (38-126); ANION GAP 5 (5-19); ASPARTATE AMINO TRANSFERASE 37 U/L (14-36); BILIRUBIN,TOTAL 0.5 mg/dL (0.2-1.3); BLOOD UREA NITROGEN 16 mg/dL (7-20); CALCIUM 9.7 mg/dL (8.4-10.2); CARBON DIOXIDE 30 mmol/L (22-30); CHLORIDE 102 mmol/L (98-107); GLUCOSE 178 mg/dL (75-110); POTASSIUM 4.5 mmol/L (3.6-5.0); TOTAL PROTEIN 6.2 g/dL (6.3-8.2)
[2020-01-19 09:56] LABS: CREATINE KINASE < 20 U/L (30-135)
== END ==
LOC: OD 08:17
PROVIDERS: ATTEND Internal Medicine
DX: G61.81 Chronic inflammatory demyelinating polyneuritis (principal)
CPT/HCPCS: 36415; 80053; 80074; 82550; 82784; 84165; 85025; 86038; 86235; 86431

== ENCOUNTER 2020-05-27 13:40 | Observation (INO) | payer MEDICARE, BC ==
[2020-05-27 17:34] LABS: ABSOLUTE LYMPHOCYTES (AUTO) 0.9 10^3/uL (0.5-4.7); ABSOLUTE MONOCYTES (AUTO) 0.2 10^3/uL (0.1-1.4); ABSOLUTE NEUT (AUTO) 7.9 10^3/uL (1.7-8.2); BASOPHILS % (AUTO) 0.3 % (0-2); HEMATOCRIT 39.2 % (36.0-47.0); HEMOGLOBIN 13.3 g/dL (12.0-15.5); MEAN CORPUSCULAR HEMOGLOBIN 29.8 pg (27.0-33.4); MEAN CORPUSCULAR HGB CONC 34.1 g/dL (32.0-36.0); MEAN CORPUSCULAR VOLUME 87 fl (80-97); MONOCYTES % (AUTO) 1.9 % (3-13); PLATELET COUNT 189 10^3/uL (150-450); RED BLOOD COUNT 4.48 10^6/uL (3.72-5.28); RED CELL DISTRIBUTION WIDTH 16.6 % (11.5-14.0); SEGMENTED NEUTROPHILS % (AUTO) 87.8 % (42-78); TOTAL CELLS COUNTED % (AUTO) 100 %; WHITE BLOOD COUNT 8.9 10^3/uL (4.0-10.5)
[2020-05-27 17:56] LABS: ALBUMIN 3.9 g/dL (3.5-5.0); ALKALINE PHOSPHATASE 78 U/L (38-126); ANION GAP 8 (5-19); ASPARTATE AMINO TRANSFERASE 49 U/L (14-36); BILIRUBIN,DIRECT 0.2 mg/dL (0.0-0.4); BILIRUBIN,TOTAL 0.6 mg/dL (0.2-1.3); BLOOD UREA NITROGEN 18 mg/dL (7-20); CALCIUM 9.7 mg/dL (8.4-10.2); CARBON DIOXIDE 27 mmol/L (22-30); CHLORIDE 102 mmol/L (98-107); CREATINE KINASE 30 U/L (30-135); GLUCOSE 165 mg/dL (75-110); POTASSIUM 4.5 mmol/L (3.6-5.0); TOTAL PROTEIN 6.9 g/dL (6.3-8.2)
[2020-05-27 18:09] LABS: CREATINE KINASE MB 0.43 ng/mL (<4.55); TROPONIN I 0.043 ng/mL
[2020-05-27 18:13] LABS: FREE T4 (FREE THYROXINE) 1.54 ng/dL (0.78-2.19)
[2020-05-27 18:27] LABS: THYROID STIMULATING HORMONE 0.88 uIU/mL (0.47-4.68)
--- NOTE | 2020-05-27 20:23 | PDOC H&P ---
History of Present Illness Admission Date/PCP: 05/27/20 13:40 NO LOCALMD History of Present Illness: ANDREW HUIZAR is a 80 year old female, She has a history of chronic inflammatory demyelinating polyneuropathy, type 2 diabetes mellitus, she is new to our practice, she came to the office today for evaluation of chest pain of 3 days duration, the chest pain is substernal chest pain, she is not able to describe the chest pain, the chest pain is not provoked by activity, a 12-lead EKG was done, it was sinus rhythm, there was left anterior fascicle block Past Medical History Cardiac Medical History: Reports: Atrial Fibrillation, Hyperlipidema Neurological Medical History: Reports: Other - CIDP Endocrine Medical History: Reports: Diabetes Mellitus Type 2 Past Surgical History Past Surgical History: Reports: Section, Cholecystectomy Social History Smoking Status: Never Smoker Electronic Cigarette use?: No Frequency of Alcohol Use: None Hx Recreational Drug Use: No Drugs: None Hx Prescription Drug Abuse: No Family History Family History: Reviewed & Not Pertinent, DM Parental Family History Reviewed: Yes Children Family History Reviewed: Yes Sibling(s) Family History Reviewed.: Yes Medication/Allergy Home Medications: Atorvastatin Calcium [Lipitor 40 mg Tablet] 40 mg PO QHS 10/25/19 Metformin HCl [Metformin HCl ER] 1,000 mg PO BID 10/25/19 Aspirin [Aspirin 325 mg Tablet] 325 mg PO DAILYP PRN 05/27/20 Duloxetine HCl [Cymbalta 30 mg Capsule.dr] 30 mg PO DAILY 05/27/20 Pantoprazole Sodium [Protonix [address] Tablet] 40 mg PO DAILY 05/27/20 Prednisone [Deltasone 5 mg Tablet] 15 mg PO DAILY 05/27/20 Sitagliptin Phosphate [Januvia 25 mg Tablet] 25 mg PO DAILY 05/27/20 Allergies/Adverse Reactions: No Known Allergies Allergy (Verified 08/19/19 18:33) Review of Systems Constitutional: ABSENT: chills, fever(s), headache(s), weight gain, weight loss Eyes: ABSENT: visual disturbances Ears: ABSENT: hearing changes Cardiovascular: PRESENT: chest pain. ABSENT: dyspnea on exertion, edema, orthropnea, palpitations Respiratory: ABSENT: cough, hemoptysis Gastrointestinal: ABSENT: abdominal pain, constipation, diarrhea, hematemesis, hematochezia, nausea, vomiting Genitourinary: ABSENT: dysuria, hematuria Musculoskeletal: ABSENT: joint swelling Integumentary: ABSENT: rash, wounds Neurological: ABSENT: abnormal gait, abnormal speech, confusion, dizziness, focal weakness, syncope Psychiatric: ABSENT: anxiety, depression, homidical ideation, suicidal ideation Endocrine: ABSENT: cold intolerance, heat intolerance, menstrual abnormalities, polydipsia, polyuria Hematologic/Lymphatic: ABSENT: easy bleeding, easy bruising, lymphadenopathy Physical Exam Vital Signs: Temp Pulse Resp BP Pulse Ox 97.3 F 105 H 16 127/59 H 98 05/27/20 19:10 05/27/20 19:10 05/27/20 19:10 05/27/20 19:10 05/27/20 19:10 Intake & Output 05/26/20 05/27/20 05/28/20 06:59 06:59 06:59 Intake Total 340 Balance 340 Weight 62 kg General appearance: PRESENT: no acute distress, well-developed, well-nourished Head exam: PRESENT: atraumatic, normocephalic Eye exam: PRESENT: conjunctiva pink, EOMI, PERRLA Ear exam: PRESENT: normal external ear exam Mouth exam: PRESENT: moist, tongue midline Neck exam: PRESENT: full ROM Respiratory exam: PRESENT: clear to auscultation karlos Cardiovascular exam: PRESENT: RRR, +S1, +S2 Pulses: PRESENT: normal dorsalis pedis pul, +2 pedal pulses bilateral Vascular exam: PRESENT: normal capillary refill GI/Abdominal exam: PRESENT: normal bowel sounds, soft Rectal exam: PRESENT: deferred Neurological exam: PRESENT: alert, awake, oriented to person, oriented to place, oriented to time, oriented to situation, CN II-XII grossly intact Psychiatric exam: PRESENT: appropriate affect, normal mood Skin exam: PRESENT: dry, intact, warm Results Laboratory Results: 05/27/20 17:19 05/27/20 17:19 05/27/20 05/27/20 05/27/20 17:19 17:19 17:19 WBC 8.9 RBC 4.48 Hgb 13.3 Hct 39.2 MCV 87 MCH 29.8 MCHC 34.1 RDW 16.6 H Plt Count 189 Seg Neutrophils % 87.8 H Sodium 136.8 L Potassium 4.5 Chloride 102 Carbon Dioxide 27 Anion Gap 8 BUN 18 Creatinine 0.78 Est GFR ( Amer) > 60 Glucose 165 H Calcium 9.7 Total Bilirubin 0.6 AST 49 H Alkaline Phosphatase 78 Total Protein 6.9 Albumin 3.9 TSH 0.88 Free T4 1.54 05/27/20 05/27/20 17:19 17:19 Creatine Kinase 30 CK-MB (CK-2) 0.43 Troponin I 0.043 Assessment & Plan - Diagnosis (1) Chest pain Qualifiers: Chest pain type: unspecified Qualified Code(s): R07.9 - Chest pain, unspecified Is this a current diagnosis for this admission?: Yes Plan: She has chest pain of unknown etiology, she is admitted for evaluation (2) CIDP (chronic inflammatory demyelinating polyneuropathy) Is this a current diagnosis for this admission?: Yes - Time Time Spent: Greater than 70 Minutes Medications reviewed and adjusted accordingly: Yes Anticipated Discharge Disposition: Home, Self Care Anticipated Discharge Timeframe: within 72 hours
[2020-05-27 23:22] LABS: CREATINE KINASE MB 0.34 ng/mL (<4.55); TROPONIN I 0.033 ng/mL
--- NOTE | 2020-05-28 01:40 | EKG REPORT ---
SEVERITY:- ABNORMAL ECG - SINUS OR ECTOPIC ATRIAL RHYTHM LEFT ANTERIOR FASCICULAR BLOCK LEFT VENTRICULAR HYPERTROPHY : Confirmed by: Oliva Tellez MD 28-May-2020 01:38:28
[2020-05-28 06:41] LABS: CREATINE KINASE MB 0.24 ng/mL (<4.55); TROPONIN I 0.036 ng/mL
[2020-05-28] MEDS: ASPIRIN 81 MG TABLET, ENT COATED PO SCH ×2 (13:32→15:09)
[2020-05-28] MEDS ORDERED: ASPIRIN 325 MG TABLET PO PRN (14:32)
[2020-05-28] MEDS: SITAGLIPTIN PHOSPHATE 25 MG TABLET PO SCH (15:08)
[2020-05-28] MEDS: PREDNISONE 5 MG TABLET PO SCH (15:08)
[2020-05-28] MEDS: DULOXETINE HCL 30 MG CAPSULE.DR PO SCH (15:08)
[2020-05-28] MEDS: PANTOPRAZOLE SODIUM 40 MG TABLET.DR PO SCH (15:09)
[2020-05-28] MEDS ORDERED: (PENDING PHARMACY ID) (Metformin Hcl [Metformin Hcl Er] 1,000 MG) PO SCH (18:00)
[2020-05-28] MEDS: METFORMIN HCL 500 MG TABLET PO SCH ×2 (18:16→23:29)
[2020-05-28] MEDS ORDERED: ATORVASTATIN CALCIUM 40 MG TABLET PO SCH (22:00)
[2020-05-29] MEDS: METFORMIN HCL 500 MG TABLET PO SCH (05:30)
[2020-05-29] MEDS: DULOXETINE HCL 30 MG CAPSULE.DR PO SCH (10:35)
[2020-05-29] MEDS: PREDNISONE 5 MG TABLET PO SCH (10:35)
[2020-05-29] MEDS: SITAGLIPTIN PHOSPHATE 25 MG TABLET PO SCH (10:35)
[2020-05-29] MEDS: ASPIRIN 81 MG TABLET, ENT COATED PO SCH (10:35)
[2020-05-29] MEDS: PANTOPRAZOLE SODIUM 40 MG TABLET.DR PO SCH (10:35)
[2020-05-29 10:40] VITALS: BP 130/65
--- NOTE | 2020-05-29 12:17 | PDOC DISCHARGE SUMMARY ---
Impression - Admit/DC Date/PCP Admission Date/Primary Care Provider: 05/27/20 13:40 NO LOCALMD Discharge Date: 05/29/20 - Discharge Diagnosis (1) Chest pain Is this a current diagnosis for this admission?: Yes (2) CIDP (chronic inflammatory demyelinating polyneuropathy) Is this a current diagnosis for this admission?: Yes - Additional Information Discharge Diet: As Tolerated, Diabetic Referrals: MILTON GARCIAS MD [ACTIVE STAFF] - 06/02/20 9:00 am Home Medications: Atorvastatin Calcium [Lipitor 40 mg Tablet] 40 mg PO QHS 10/25/19 Metformin HCl [Metformin HCl ER] 1,000 mg PO BID 10/25/19 Aspirin [Aspirin 325 mg Tablet] 325 mg PO DAILYP PRN 05/27/20 Duloxetine HCl [Cymbalta 30 mg Capsule.dr] 30 mg PO DAILY 05/27/20 Pantoprazole Sodium [Protonix [address] Tablet] 40 mg PO DAILY 05/27/20 Prednisone [Deltasone 5 mg Tablet] 15 mg PO DAILY 05/27/20 Sitagliptin Phosphate [Januvia 25 mg Tablet] 25 mg PO DAILY 05/27/20 History of Present Illiness History of Present Illness: ANDREW UHIZAR is a 80 year old female, She has a history of chronic inflammatory demyelinating polyneuropathy, type 2 diabetes mellitus, she is new to our practice, she came to the office today for evaluation of chest pain of 3 days duration, the chest pain is substernal chest pain, she is not able to describe the chest pain, the chest pain is not provoked by activity, a 12-lead EKG was done, it was sinus rhythm, there was left anterior fascicle block Hospital Course Hospital Course: Patient was admitted for evalaution of chest pain ,3 sets of cardiac enzymes was negative for acute CT. Patient was supposed to have Cardiolite Lexiscan stress test But for some unknown reasons, the test was not done for the last 2 days, She discharged home today to arrange for outpatient stress test Physical Exam Vital Signs: Temp Pulse Resp BP Pulse Ox 97.7 F 96 14 130/65 H 97 05/29/20 10:37 05/29/20 10:37 05/29/20 10:37 05/29/20 10:37 05/29/20 10:37 Intake & Output 05/28/20 05/29/20 05/30/20 06:59 06:59 06:59 Intake Total 340 980 Balance 340 980 Weight 62 kg 64.6 kg General appearance: PRESENT: no acute distress Eye exam: PRESENT: PERRLA Respiratory exam: PRESENT: clear to auscultation karlos Cardiovascular exam: PRESENT: +S1, +S2 GI/Abdominal exam: PRESENT: soft Neurological exam: PRESENT: alert Results Laboratory Results: WBC 8.9 10^3/uL (4.0-10.5) 05/27/20 17:19 RBC 4.48 10^6/uL (3.72-5.28) 05/27/20 17:19 Hgb 13.3 g/dL (12.0-15.5) 05/27/20 17:19 Hct 39.2 % (36.0-47.0) 05/27/20 17:19 MCV 87 fl (80-97) 05/27/20 17:19 MCH 29.8 pg (27.0-33.4) 05/27/20 17:19 MCHC 34.1 g/dL (32.0-36.0) 05/27/20 17:19 RDW 16.6 % (11.5-14.0) H 05/27/20 17:19 Plt Count 189 10^3/uL (150-450) 05/27/20 17:19 Lymph % (Auto) 10.0 % (13-45) L 05/27/20 17:19 [place] % (Auto) 1.9 % (3-13) L 05/27/20 17:19 Eos % (Auto) 0.0 % (0-6) 05/27/20 17:19 Baso % (Auto) 0.3 % (0-2) 05/27/20 17:19 Absolute Neuts (auto) 7.9 10^3/uL (1.7-8.2) 05/27/20 17:19 Absolute Lymphs (auto) 0.9 10^3/uL (0.5-4.7) 05/27/20 17:19 Absolute Monos (auto) 0.2 10^3/uL (0.1-1.4) 05/27/20 17:19 Absolute Eos (auto) 0.0 10^3/uL (0.0-0.6) 05/27/20 17:19 Absolute Basos (auto) 0.0 10^3/uL (0.0-0.2) 05/27/20 17:19 Seg Neutrophils % 87.8 % (42-78) H 05/27/20 17:19 Sodium 136.8 mmol/L (137-145) L 05/27/20 17:19 Potassium 4.5 mmol/L (3.6-5.0) 05/27/20 17:19 Chloride 102 mmol/L (98-107) 05/27/20 17:19 Carbon Dioxide 27 mmol/L (22-30) 05/27/20 17:19 Anion Gap 8 (5-19) 05/27/20 17:19 BUN 18 mg/dL (7-20) 05/27/20 17:19 Creatinine 0.78 mg/dL (0.52-1.25) 05/27/20 17:19 Est GFR ( Amer) > 60 (>60) 05/27/20 17:19 Est GFR (MDRD) Non-Af > 60 (>60) 05/27/20 17:19 Glucose 165 mg/dL (75-110) H 05/27/20 17:19 POC Glucose 142 mg/dL (70-110) H 05/29/20 05:40 Hemoglobin A1c % 8.1 % (4.7-6.0) H 05/27/20 17:19 Calcium 9.7 mg/dL (8.4-10.2) 05/27/20 17:19 Total Bilirubin 0.6 mg/dL (0.2-1.3) 05/27/20 17:19 Direct Bilirubin 0.2 mg/dL (0.0-0.4) 05/27/20 17:19 Neonat Total Bilirubin Not Reportable 05/27/20 17:19 Neonat Direct Bilirubin Not Reportable 05/27/20 17:19 Neonat Indirect Bili Not Reportable 05/27/20 17:19 AST 49 U/L (14-36) H 05/27/20 17:19 ALT 44 U/L (<35) H 05/27/20 17:19 Alkaline Phosphatase 78 U/L (38-126) 05/27/20 17:19 Creatine Kinase 29 U/L (30-135) L 05/28/20 05:14 CK-MB (CK-2) 0.24 ng/mL (<4.55) 05/28/20 05:14 Troponin I 0.036 ng/mL 05/28/20 05:14 Total Protein 6.9 g/dL (6.3-8.2) 05/27/20 17:19 Albumin 3.9 g/dL (3.5-5.0) 05/27/20 17:19 TSH 0.88 uIU/mL (0.47-4.68) 05/27/20 17:19 Free T4 1.54 ng/dL (0.78-2.19) 05/27/20 17:19 05/27/20 05/27/20 05/28/20 17:19 22:47 05:14 CK-MB (CK-2) 0.43 0.34 0.24 Troponin I 0.043 0.033 0.036 Stroke Is this a Stroke Patient?: No Acute Heart Failure Is this a Heart Failure Patient?: No
== END 2020-05-29 11:10 | disposition home or self-care (01) ==
LOC: 3W 13:40
PROVIDERS: ADMIT Internal Medicine; ATTEND Internal Medicine
DX: R07.2 Precordial pain (principal); G61.81 Chronic inflammatory demyelinating polyneuritis; I44.4 Left anterior fascicular block; E78.5 Hyperlipidemia, unspecified; E11.9 Type 2 diabetes mellitus without complications; Z79.899 Other long term (current) drug therapy; Z79.82 Long term (current) use of aspirin; Z79.84 Long term (current) use of oral hypoglycemic drugs
CPT/HCPCS: 36415 ×2; 84439; 82553 ×2; 82962 ×3; 82550 ×2; 84443; 85025; 80053; 84484 ×2; 83036; 93005; 93010; G0378 ×3; G0379; A9270 ×13; J3490; J7512

== ENCOUNTER 2020-06-10 08:05 | Outpatient (CLI) | payer MEDICARE, BC ==
[2020-06-10] MEDS ORDERED: ACETAMINOPHEN 325 MG TABLET PO PRN (08:16)
[2020-06-10] MEDS ORDERED: DIPHENHYDRAMINE HCL 25 MG CAPSULE PO PRN (08:16)
[2020-06-10 08:22] VITALS: BP 121/60
[2020-06-10] MEDS ORDERED: DIPHENHYDRAMINE HCL 25 MG CAPSULE ONE (08:24)
[2020-06-10] MEDS ORDERED: ACETAMINOPHEN 325 MG TABLET ONE (08:24)
[2020-06-10] MEDS ORDERED: [UNRECOGNIZED DRUG - OTHER] IV PRN (08:33)
[2020-06-10] MEDS ORDERED: IMMUN GLOB IV PRN (08:33)
[2020-06-10] MEDS ORDERED: GLY IV PRN (08:33)
[2020-06-10] MEDS ORDERED: IGA OV50 IV PRN (08:33)
== END 2020-06-10 12:45 | disposition home or self-care (01) ==
LOC: II 08:05 → 5TH 08:22 → II 12:45
PROVIDERS: ATTEND Internal Medicine
DX: G61.81 Chronic inflammatory demyelinating polyneuritis (principal)
CPT/HCPCS: 96365; 96366; A9270 ×3; J1569 ×2; J3490

== ENCOUNTER 2020-06-11 08:03 | Outpatient (CLI) | payer MEDICARE, BC ==
[~2020-06-11 08:03] MED LIST: ACETAMINOPHEN 325 MG TABLET PO PRN; DIPHENHYDRAMINE HCL 25 MG CAPSULE PO PRN; GLY IV PRN; IGA OV50 IV PRN; IMMUN GLOB IV PRN; [UNRECOGNIZED DRUG - OTHER] IV PRN
[2020-06-11 08:20] VITALS: BP 135/55
== END 2020-06-11 11:23 | disposition home or self-care (01) ==
LOC: II 08:03 → 5TH 08:04 → II 11:23
PROVIDERS: ATTEND Internal Medicine
DX: G61.81 Chronic inflammatory demyelinating polyneuritis (principal)
CPT/HCPCS: 96365; 96366; A9270; J1569 ×2; J3490

== ENCOUNTER 2020-07-08 08:04 | Outpatient (CLI) | payer MEDICARE, BC ==
[~2020-07-08 08:04] MED LIST changes: +NORMAL SALINE 10 ML SDV (AFTER EACH USE) IV PRN
[2020-07-08 08:52] VITALS: BP 131/84
== END 2020-07-08 12:00 | disposition home or self-care (01) ==
LOC: II 08:04 → 5TH 08:04 → II 12:00
PROVIDERS: ATTEND Internal Medicine
DX: G61.81 Chronic inflammatory demyelinating polyneuritis (principal)
CPT/HCPCS: 96365; 96366; A9270; J1569 ×2; J3490

== ENCOUNTER 2020-07-09 08:05 | Outpatient (CLI) | payer MEDICARE, BC ==
[2020-07-09 08:19] VITALS: BP 132/68
== END 2020-07-09 11:30 | disposition home or self-care (01) ==
LOC: II 08:05 → 5TH 08:07 → II 11:30
PROVIDERS: ATTEND Internal Medicine
DX: G61.81 Chronic inflammatory demyelinating polyneuritis (principal)
CPT/HCPCS: 96365; 96366; A9270; J1569 ×2; J3490

== ENCOUNTER 2020-08-05 10:55 | Outpatient (CLI) | payer MEDICARE, BC ==
[~2020-08-05 10:55] MED LIST changes: -NORMAL SALINE 10 ML SDV (AFTER EACH USE) IV PRN
[2020-08-05 12:13] VITALS: BP 138/70
== END 2020-08-05 14:30 | disposition home or self-care (01) ==
LOC: II 10:55 → 5TH 10:57 → II 14:30
PROVIDERS: ATTEND Internal Medicine
DX: G61.81 Chronic inflammatory demyelinating polyneuritis (principal)
CPT/HCPCS: 96365; 96366; A9270; J1569 ×2; J3490

== ENCOUNTER 2020-08-06 08:08 | Outpatient (CLI) | payer MEDICARE, BC ==
[2020-08-06 08:43] VITALS: BP 131/58
== END 2020-08-06 11:45 | disposition home or self-care (01) ==
LOC: II 08:08 → 5TH 08:08 → II 11:45
PROVIDERS: ATTEND Internal Medicine
DX: G61.81 Chronic inflammatory demyelinating polyneuritis (principal)
CPT/HCPCS: 96365; 96366; A9270; J1569 ×2; J3490

== ENCOUNTER 2020-09-02 08:03 | Outpatient (CLI) | payer MEDICARE, BC ==
[2020-09-02 09:40] VITALS: BP 145/70
== END 2020-09-02 11:35 | disposition home or self-care (01) ==
LOC: II 08:03 → 5TH 08:05 → II 11:35
PROVIDERS: ATTEND Internal Medicine
DX: G61.81 Chronic inflammatory demyelinating polyneuritis (principal)
CPT/HCPCS: 96365; 96366; A9270; J1569 ×2; J3490

== ENCOUNTER 2020-09-02 20:47 | Emergency (ER) | payer MEDICARE, BC ==
--- NOTE | 2020-09-02 23:57 | ER Document Report ---
ED General - General Chief Complaint: Altered Mental Status Stated Complaint: ALTERED MENTAL STATUS Time Seen by Provider: 09/02/20 23:40 Primary Care Provider: MILTON GARCIAS MD [Primary Care Provider] - Follow up as needed TRAVEL OUTSIDE OF THE [place] IN LAST 30 DAYS: No - HPI Notes: 80-year-old female presents with altered mental status. Patient states "I don't know" when asked why she is in the emergency department, she states that she is doing okay and denies complaints. She denies cough, chest pain, abdominal pain. Nursing has reached out to family, per report apparently for the past 2 days patient has been altered, she has seemed to forgotten that she has a new granddaughter and family in [place], apparently does not remember them. EMS run sheet at bedside indicates that patient has known positive Covid for members at home and had their rapid antigen test was positive - Related Data Allergies/Adverse Reactions: No Known Allergies Allergy (Verified 08/19/19 18:33) Past Medical History - General Information source: Patient - Social History Smoking Status: Unknown if Ever Smoked Family History: DM - Past Medical History Cardiac Medical History: Reports: Hx Atrial Fibrillation, Hx Hypercholesterolemia Endocrine Medical History: Reports: Hx Diabetes Mellitus Type 2 Renal/ Medical History: Denies: Hx Peritoneal Dialysis Musculoskeletal Medical History: Reports Hx Musculoskeletal Deformity, Reports Hx Musculoskeletal Trauma Psychiatric Medical History: Denies: Hx Depression Past Surgical History: Reports: Hx Section, Hx Cholecystectomy, Hx Open Heart Surgery - Mitral valvuloplasty and (Porcine) Aortic valve replacement February 2014 - Immunizations Hx Diphtheria, Pertussis, Tetanus Vaccination: Yes Review of Systems - Review of Systems Constitutional: Fever EENT: No symptoms reported Cardiovascular: denies: Chest pain Respiratory: denies: Short of breath Gastrointestinal: denies: Abdominal pain Genitourinary: No symptoms reported Female Genitourinary: No symptoms reported Musculoskeletal: No symptoms reported Skin: No symptoms reported Hematologic/Lymphatic: No symptoms reported Neurological/Psychological: No symptoms reported Physical Exam - Vital signs Vitals: Temp 100.4 F 09/02/20 21:00 - General General appearance: Appears well, Alert In distress: None - HEENT Head: Normocephalic, Atraumatic Extraocular movements intact: Yes Pupils: PERRL - Respiratory Breath sounds: Normal - Cardiovascular Rhythm: Regular Murmur: Yes Normal capillary refill: Yes - Abdominal Tenderness: Nontender - Extremities General upper extremity: Normal ROM General lower extremity: Normal ROM. No: Edema - Neurological Notes: Face is symmetric and speech is clear, strength symmetric between upper extremities, strength symmetric between lower extremities, sensation grossly intact. Somewhat alteration in mental status as she appears to gaze off - Psychological Associated symptoms: Normal affect - Skin Skin Temperature: Warm Course - Re-evaluation Re-evalutation: 80-year-old female arrives from home with concerns for altered mental status, apparently forgot about certain family members. On exam she is alert, does appear somewhat altered, though does answer questions, no gross focal neuro deficits. She is febrile 100.4, EMS swab is positive for Covid, suspect this could be a reason for her perceived altered mental status. Will obtain thorough work-up to assure that no other pathology is going on, such as electrolyte abnormality or intracranial abnormality. 09/03/20 03:49 Patient much more alert, appears to be back to her baseline. She is able to state that she does live with her [id number] who is known to be Covid positive. Patient is otherwise denying complaints currently and states she feels fine. Discussed with her potentially for admission to receive IVIG, will touch base with Dr. Garcias 09/03/20 03:[address] without acute abnormality. Chest x-ray without consolidation. No leukocytosis. Chronic stable anemia. Electrolytes within normal limits. Creatinine within normal limits. Elevation of D-dimer, suspect this to related to Covid infection, no hypoxia or tachycardia. Slight elevation of CRP. No UTI. 09/03/20 03:[address] Garcias, given that she is now alert and oriented, feels comfortable with her going home with strict return precautions. She did recently receive IVIG so would not need another dose now. 09/03/20 04:04 Discussed with patient conversation with Dr. Garcias. She feels comfortable going home. She is neurologically intact, no focal deficits. She states that she does note that she has a new granddaughter and family in [place]. I discussed with her strict return precautions and symptomatic control. Stable at time of discharge. - Vital Signs Vital signs: Temp Pulse Resp BP Pulse Ox 100.4 F 100 27 H 109/81 93 09/02/20 21:00 09/02/20 21:21 09/03/20 02:01 09/03/20 02:01 09/03/20 02:01 - Laboratory Results Result Diagrams: 09/02/20 21:25 09/02/20 21:25 Laboratory Results Interpreted: 09/02/20 09/02/20 09/02/20 21:25 21:25 21:25 Hgb 11.5 L Hct 33.9 L RDW 14.1 H [place] % (Auto) 15.3 H D-Dimer 0.92 H BUN 21 H Est GFR (MDRD) Non-Af 59 L Glucose 133 H C-Reactive Protein 09/02/20 21:25 Hgb Hct RDW [place] % (Auto) D-Dimer BUN Est GFR (MDRD) Non-Af Glucose C-Reactive Protein 14.7 H Critical Laboratory Results Reviewed: No Critical Results - Radiology Results Critical Radiology Results Reviewed: No Critical Results - EKG Interpretation by Me Additional EKG results interpreted by me: EKG is interpreted by me. Sinus arrhythmia, rate approximately 102. Narrow QRS, QTC within normal limits. Nonspecific ST changes. No STEMI. Discharge - Discharge Clinical Impression: Person under investigation for COVID-19 Disposition: HOME, SELF-CARE Additional Instructions: As discussed, you will likely have Covid given that your test with EMS was positive, your formal test should result in about 2 days. Please maintain strict quarantine at home until this results. Please begin daily multivitamin, one that contains vitamin C and D. You may also use other ckei-los-azyyoun cough/cold medications in case you develop respiratory symptoms. Please return to the emergency department immediately for any concerning or worsening symptoms. Referrals: MILTON GARCIAS MD [Primary Care Provider] - Follow up as needed
[2020-09-03] MEDS ORDERED: ACETAMINOPHEN 325 MG TABLET PO ONE (00:17)
[2020-09-03 01:01] LABS: ABSOLUTE LYMPHOCYTES (AUTO) 0.8 10^3/uL (0.5-4.7); ABSOLUTE MONOCYTES (AUTO) 0.8 10^3/uL (0.1-1.4); ABSOLUTE NEUT (AUTO) 3.6 10^3/uL (1.7-8.2); BASOPHILS % (AUTO) 0.4 % (0-2); HEMATOCRIT 33.9 % (36.0-47.0); HEMOGLOBIN 11.5 g/dL (12.0-15.5); LYMPHOCYTES % (AUTO) 14.6 % (13-45); MEAN CORPUSCULAR HEMOGLOBIN 29.5 pg (27.0-33.4); MEAN CORPUSCULAR HGB CONC 33.7 g/dL (32.0-36.0); MEAN CORPUSCULAR VOLUME 87 fl (80-97); MONOCYTES % (AUTO) 15.3 % (3-13); PLATELET COUNT 180 10^3/uL (150-450); RED BLOOD COUNT 3.88 10^6/uL (3.72-5.28); RED CELL DISTRIBUTION WIDTH 14.1 % (11.5-14.0); SEGMENTED NEUTROPHILS % (AUTO) 69.7 % (42-78); TOTAL CELLS COUNTED % (AUTO) 100 %; WHITE BLOOD COUNT 5.2 10^3/uL (4.0-10.5)
[2020-09-03 01:10] LABS: ALBUMIN 3.7 g/dL (3.5-5.0); ALKALINE PHOSPHATASE 71 U/L (38-126); ANION GAP 6 (5-19); ASPARTATE AMINO TRANSFERASE 36 U/L (14-36); BILIRUBIN,DIRECT 0.2 mg/dL (0.0-0.4); BILIRUBIN,TOTAL 0.5 mg/dL (0.2-1.3); BLOOD UREA NITROGEN 21 mg/dL (7-20); CALCIUM 9.2 mg/dL (8.4-10.2); CARBON DIOXIDE 29 mmol/L (22-30); CHLORIDE 102 mmol/L (98-107); GLUCOSE 133 mg/dL (75-110); POTASSIUM 3.7 mmol/L (3.6-5.0); TOTAL PROTEIN 7.3 g/dL (6.3-8.2)
[2020-09-03 01:22] LABS: APPEARANCE,URINE CLEAR; BILIRUBIN,URINE NEGATIVE (NEGATIVE); COLOR,URINE YELLOW; GLUCOSE, URINE NEGATIVE (NEGATIVE); KETONES,URINE NEGATIVE (NEGATIVE); LEUKOCYTE ESTERASE,URINE NEGATIVE (NEGATIVE); NITRITE,URINE NEGATIVE (NEGATIVE); PROTEIN,URINE NEGATIVE (NEGATIVE); UROBILINOGEN,URINE NEGATIVE mg/dL (<2.0)
[2020-09-03 01:55] LABS: URINE AMPHETAMINES SCREEN NEGATIVE; URINE BARBITURATES SCREEN NEGATIVE; URINE BENZODIAZEPINES SCREEN NEGATIVE; URINE COCAINE SCREEN NEGATIVE; URINE MARIJUANA (THC) SCREEN NEGATIVE; URINE METHADONE SCREEN NEGATIVE; URINE PHENCYCLIDINE SCREEN NEGATIVE
[2020-09-03 02:15] LABS: C-REACTIVE PROTEIN 14.7 mg/L (<10.0); FERRITIN 13.3 ng/mL (11.1-264.0)
--- NOTE | 2020-09-03 03:16 | RADIOLOGY REPORT (SQ) ---
CHEST X-RAY 1 VIEW on 09/03/2020 at 1:59 AM CLINICAL INDICATION: COVID 19 COMPARISON: 12/26/2014 FINDINGS: The patient is status post median sternotomy and valve replacement. Vascular calcification is noted in the aorta. The lungs are clear. Cardiac, hilar and mediastinal contours are within normal limits. Pulmonary vascularity is within normal limits. IMPRESSION: No pulmonary opacities identified. Please note that chest radiographs have low sensitivity for subtle groundglass opacities.
--- NOTE | 2020-09-03 03:17 | RADIOLOGY REPORT (SQ) ---
CT head without contrast on 09/03/2020 at 2:30 AM CLINICAL INDICATION: Altered mental status TECHNIQUE: Multiple axial images are obtained throughout the head without the administration of contrast. This exam was performed according to our departmental dose-optimization program, which includes automated exposure control, adjustment of the mA and/or kV according to patient size and/or use of iterative reconstruction technique. Total DLP is 1043.77 mGy*cm. COMPARISON: 12/27/2019 FINDINGS: There is no hydrocephalus. There is minimal low-density in the periventricular white matter consistent with minimal chronic small vessel ischemic changes. There is no CT evidence of acute infarct. There is no hemorrhage. There are no abnormal extra-axial fluid collections. There is no mass, mass effect or midline shift. No bony abnormality is noted. IMPRESSION: Stable exam with no acute intracranial abnormality.
[2020-09-03 05:24] VITALS: BP 147/71
--- NOTE | 2020-09-03 10:11 | EKG REPORT ---
SEVERITY:- ABNORMAL ECG - SINUS TACHYCARDIA WITH PAC LEFT AXIS DEVIATION LVH WITH SECONDARY REPOLARIZATION ABNORMALITY : Confirmed by: Chance Murphy MD 03-Sep-2020 10:11:21
== END 2020-09-03 06:18 | disposition home or self-care (01) ==
LOC: ER 20:47
DX: U07.1 COVID-19 (principal); R50.9 Fever, unspecified; R41.3 Other amnesia; E11.9 Type 2 diabetes mellitus without complications; D64.9 Anemia, unspecified; R79.89 Other specified abnormal findings of blood chemistry; R79.82 Elevated C-reactive protein (CRP); I49.9 Cardiac arrhythmia, unspecified
CPT/HCPCS: 93005; 99285; 36415; 82962; 82728; 85025; 86140; 80053; 81001; 80307; 85379; 71045; 70450; 93010; U0003; A9270; C9803; 84484; 87635

== ENCOUNTER 2020-09-03 08:02 | Outpatient (CLI) | payer MEDICARE, BC ==
[2020-09-03 08:58] VITALS: BP 130/60
== END 2020-09-03 12:33 | disposition home or self-care (01) ==
LOC: II 08:02 → 5TH 08:04 → II 12:33
PROVIDERS: ATTEND Internal Medicine
DX: G61.81 Chronic inflammatory demyelinating polyneuritis (principal)
CPT/HCPCS: 96365; 96366; A9270; J1569 ×2; J3490

== ENCOUNTER → 2020-09-29 | Outpatient (CLI) | payer MEDICARE, BC ==
--- NOTE | 2020-09-29 16:46 | RADIOLOGY REPORT (SQ) ---
EXAM DESCRIPTION: CT CERVICAL SPINE WITHOUT IMAGES COMPLETED DATE/TIME: 09/29/2020 4:29 pm REASON FOR STUDY: (W10.9XXA)FALL (ON) (FROM) UNSPECIFIED STAIRS AND STEPS, INIT ENCNTR W10.9XXA FAL L (ON) (FROM) UNSPECIFIED STAIRS AND STEPS, INIT COMPARISON: 12/27/2019. TECHNIQUE: Axial images acquired through the cervical spine without intravenous contrast. Images re viewed with lung, soft tissue and bone windows. Reconstructed coronal and sagittal MPR images review ed. Images stored on PACS. All CT scanners at this facility use dose modulation, iterative reconstruction, and/or weight based d osing when appropriate to reduce radiation dose to as low as reasonably achievable (ALARA). [facility]: Dose Right [facility]: CareDose [facility]: Dose Right [facility]: Teradose 4D [facility]: [employer] RADIATION DOSE: CT Rad equipment meets quality standard of care and radiation dose reduction techniq ues were employed. CTDIvol: 21.8 mGy. DLP: 644 mGy-cm. mGy. LIMITATIONS: None. FINDINGS: ALIGNMENT: Anatomic. MINERALIZATION: Normal. VERTEBRAL BODIES: No fractures or dislocation. DISCS: Multilevel disc space narrowing with osteophytes. FACETS, LATERAL MASSES, POSTERIOR ELEMENTS: Facet arthropathy. No fractures. No dislocation. No ac jessi findings. HARDWARE: None in the spine. VISUALIZED RIBS: No fractures. LUNG APICES AND SOFT TISSUES: No significant or acute findings. OTHER: No other significant finding. IMPRESSION: CHRONIC DEGENERATIVE CHANGES. NO ACUTE FINDINGS. TECHNICAL DOCUMENTATION: JOB ID: [id number] Quality ID # [id number]: Final reports with documentation of one or more dose reduction techniques (e.g., Au tomated exposure control, adjustment of the mA and/or kV according to patient size, use of iterative reconstruction technique) 2010 [employer]- All Rights Reserved Reading location - IP/workstation name: [email or web address]
--- NOTE | 2020-09-29 16:57 | RADIOLOGY REPORT (SQ) ---
EXAM DESCRIPTION: RIBS BILATERAL W/PA CXR IMAGES COMPLETED DATE/TIME: 09/29/2020 4:19 pm REASON FOR STUDY: (W10.9XXA)FALL (ON) (FROM) UNSPECIFIED STAIRS AND STEPS, INIT ENCNTR W10.9XXA FAL L (ON) (FROM) UNSPECIFIED STAIRS AND STEPS, INIT COMPARISON: None. TECHNIQUE: Frontal view of the chest and additional views of the right and left ribs acquired. NUMBER OF VIEWS: Four views LIMITATIONS: None. FINDINGS: FRONTAL CXR: No pneumothorax. No pleural effusion. No atelectasis or infiltrates. RIBS: No displaced rib fractures. No lytic or blastic bony lesions. OTHER: No other significant finding. IMPRESSION: NO PNEUMOTHORAX. NO DISPLACED RIB FRACTURES. COMMENT: SITE OF TRAUMA/COMPLAINT MARKED/STAMP COMPLETED: No TECHNICAL DOCUMENTATION: JOB ID: [id number] 2010 [employer]- All Rights Reserved Reading location - IP/workstation name: [email or web address]
== END ==
LOC: RAD 15:50
PROVIDERS: ATTEND Internal Medicine
DX: Z04.89 Encounter for examination and observation for other specified reasons (principal); W10.9XXA Fall (on) (from) unspecified stairs and steps, initial encounter
CPT/HCPCS: 71111; 72125

== ENCOUNTER 2020-09-30 08:03 | Outpatient (CLI) | payer MEDICARE, BC ==
[2020-09-30 08:25] VITALS: BP 154/76
== END 2020-09-30 11:39 | disposition home or self-care (01) ==
LOC: II 08:03 → 5TH 08:05 → II 11:39
PROVIDERS: ATTEND Internal Medicine
DX: G61.81 Chronic inflammatory demyelinating polyneuritis (principal)
CPT/HCPCS: 96365; 96366; A9270; J1569 ×2; J3490

== ENCOUNTER 2020-10-01 07:40 | Outpatient (CLI) | payer MEDICARE, BC ==
[2020-10-01 08:31] VITALS: BP 156/72
== END 2020-10-01 11:41 | disposition home or self-care (01) ==
LOC: II 07:40 → 5TH 07:42 → II 11:41
PROVIDERS: ATTEND Internal Medicine
DX: G61.81 Chronic inflammatory demyelinating polyneuritis (principal)
CPT/HCPCS: 96365; 96366; A9270; J1569 ×2; J3490